=== PATIENT | female | born 1945 | race Caucasian/White ===

== ENCOUNTER 2017-05-07 05:40 | Day surgery (SDC) | payer MEDICARE, OTHER ==
[~2017-05-07] VITALS: Ht 162.6 cm; Wt 109.3 kg
[~2017-05-07 05:40] MED LIST: ASPIRIN325 MG PO; ATENOLOL25 MG PO; DETROL LA4 MG PO; FISH OIL 1,2001 EAC1 PO; GABAPENTIN300 MG PO; MELOXICAM15 MG PO; METFORMIN HCL500 MG PO; OMEPRAZOLE20 MG PO; ONCE DAILY1 EACH PO; PRIMIDONE50 MG PO
--- NOTE | 2017-05-07 08:16 | NUR ---
05/07/17 0816 Lisseth Pandya 0800 RESP EVEN AND UNLABORED. PT REACTIVE AND ASLEEP. REPORT FROM [employer] MACHINE 0806 O2 REMOVED, PT REORIENTED TO PACU. O2 SAT 100%. 0812 OS SAT 89%, NC PLACED ON PT AT 4L.
--- NOTE | 2017-05-07 08:48 | NUR ---
PT ARRIVES TO DS RM 5, DROWSY WITH NC IN PLACE. PT DENIES ANY PAIN ON ARRIVAL. ICED WATER AND WARM BLANKET PROVIDED. CALL LIGHT WITHIN REACH. NO FURTHER COMPLAINTS AT THIS TIME.
[2017-05-07] MEDS ORDERED: BACTRIM DS TAB1 EACH PO (09:02)
--- NOTE | 2017-05-07 09:09 | NUR ---
LE 0850: PUDDING PROVIDED TO PT. PT STATED THEY WERE "STARVING." TOLERATED WELL WITH NO COMPLAINTS OF N/V. GLASSES ON PT PER PT REQUEST. OXYGEN TURNED OFF, PT MAINTAINING SATS OF 97. NC REMOVED. CALL LIGHT WITHIN REACH. PT RESTING QUIETLY.
--- NOTE | 2017-05-07 10:43 | OR ---
[facility] [address] [place], [place] [address] Signed DATE OF OPERATION: 05/07/2017 SURGEON: Kyler Renee MD PREOPERATIVE DIAGNOSIS: Overactive bladder. POSTOPERATIVE DIAGNOSIS: Overactive bladder. NAME OF PROCEDURE: Diagnostic cystoscopy with Botox bladder injection of 100 units. ANESTHESIA: MAC. ESTIMATED BLOOD LOSS: None. COMPLICATIONS: None. SPECIMENS: None. DRAINS: None. INDICATIONS FOR PROCEDURE: Ms. Adams is a very pleasant 72-year-old female with a longstanding history of overactive bladder. She recently presented to my clinic with reports of severe bouts of urinary urgency, frequency, and urge incontinence. She had tried both Ditropan and Detrol in the past without any improvement in her symptoms. On her last office visit, she notified me that after reading the information I had given her on Botox bladder injection, that she wanted to go ahead and give that a try. She has no history of issues with urinary tract infections and continues to wear multiple pads daily. She presents today to undergo diagnostic cystoscopy with injection of 100 units of botulinum toxin into the bladder. OPERATIVE FINDINGS: Electronically Signed By: KYLER RENEE MD 05/07/17 1043 PATIENT NAME: JEANNE ADAMS OPERATIVE REPORT DATE OF : 41 PHYSICIAN: KYLER RENEE MD REPORT #: [id number] REPORT IS CONFIDENTIAL AND NOT TO BE RELEASED WITHOUT AUTHORIZATION [facility] [address] [place], [place] [address] Signed 1. On cystoscopy, there was no evidence of any suspicious masses, lesions, or stones. The bilateral ureteral orifices are in their normal anatomic location. There is a diffuse grade 1 to 2 bladder wall trabeculation noted. 2. A total of 20 injections of botulinum toxin was injected into the bladder wall, avoiding the dome and trigone area. Each injection consisted of 0.5 mL aliquot of botulinum toxin, for a total of 100 units injected. DESCRIPTION OF PROCEDURE: After informed consent was obtained, the patient taken back to the operative room. She was transferred from [facility] to the operating room table, where MAC anesthesia was induced. She was placed in the dorsal lithotomy position and her genitalia were prepped and draped in standard sterile fashion. Using a 30-degree lens on a 21-Faroese introducer, rigid cystoscope was inserted through the urethra into her bladder under direct visualization. Panendoscopic views of the bladder were then obtained. Please see above findings. The Laborie needle was then advanced through the cystoscope and into the patient's bladder. The needle was then advanced by 4 mm. I then proceeded to inject the patient's bladder with 0.5 mL aliquots of the 100 units of botulinum toxin reconstituted with 10 mL of saline. A total of 22 injections were placed, including 2 mL of saline flush at the end of the procedure. The patient tolerated the procedure well without any complication. I avoided both the dome and trigone areas in the bladder during the injection. Once all of the botulinum toxin was injected, the procedure was terminated. The patient tolerated the procedure well without any complication. She will now be transferred to the postanesthesia care unit in stable condition. DISPOSITION: Ms. Adams will be discharged to home today in stable condition. She was given 3 days worth of Bactrim double strength for prophylaxis. She will be scheduled to return to clinic in approximately 5 weeks to undergo her first postoperative evaluation. MD FERNANDO Mock/ILIANA /[id number] Electronically Signed By: KYLER RENEE MD 05/07/17 1043 PATIENT NAME: JEANNE ADAMS OPERATIVE REPORT DATE OF : 41 PHYSICIAN: KYLER RENEE MD REPORT #: [id number] REPORT IS CONFIDENTIAL AND NOT TO BE RELEASED WITHOUT AUTHORIZATION
--- NOTE | 2017-05-07 11:22 | NUR ---
DR. RENEE IN PT ROOM. DISCUSSING HOW PROCEDURE WENT AND WHAT TO EXPECT. LE 1034: PT UP TO BR WITH RN ASSIST. PT AMBULATES WELL AND DENIES ANY DIZZINESS. PT WAS ABLE TO VOID 100 ML OF YELLOW URINE WITH SCANT AMOUNT OF RED BLOOD PRESENT. PT STATES "IT BURNED A LITTLE."
--- NOTE | 2017-05-07 12:05 | NUR ---
LE 1145: DC INSTRUCTIONS GIVEN TO PT, PT VERBALIZES UNDERSTANDING. PT DRESSED AND SITTING ON BEDSIDE. DAUGHTER, ELVIS, CALLED FOR RESOURCE MANAGEMENT SPECIALIST. PT DC'D VIA WHEELCHAIR FROM DS RM 5.
== END 2017-05-07 11:55 | disposition home or self-care (01) ==
LOC: DS 05:40 → OPS 05:40 → DS 08:00 → OPS 08:00
PROVIDERS: Urology
PROC: 3E0K8GC Introduction of Other Therapeutic Substance into Genitourinary Tract, Via Natural or Artificial Opening Endoscopic (ICD-10-PCS; principal; 2017-05-07 06:45)
DX: N32.81 Overactive bladder (principal); E11.9 Type 2 diabetes mellitus without complications; I10 Essential (primary) hypertension; I48.91 Unspecified atrial fibrillation; K21.9 Gastro-esophageal reflux disease without esophagitis; Z95.2 Presence of prosthetic heart valve; Z90.710 Acquired absence of both cervix and uterus; Z98.890 Other specified postprocedural states; Z88.5 Allergy status to narcotic agent; Z79.82 Long term (current) use of aspirin; Z79.899 Other long term (current) drug therapy; Z79.1 Long term (current) use of non-steroidal anti-inflammatories (NSAID); Z79.2 Long term (current) use of antibiotics; Z96.651 Presence of right artificial knee joint
CPT/HCPCS: 00910; J0330; J0696; J2250; J2405; J2704; J2765; J3010; J7120

== ENCOUNTER 2018-07-08 07:00 | Day surgery (SDC) | payer MEDICARE, OTHER ==
[~2018-07-08] VITALS: Ht 162.6 cm; Wt 104.8 kg
[~2018-07-08 07:00] MED LIST changes: +ATORVASTATIN CA40 MG PO; +BACTRIM DS TAB1 EACH PO; +CYMBALTA30 MG PO; +KEFLEX500 MG PO; +LISINOPRIL10 MG PO; +LISINOPRIL2.5 MG PO; +METFORMIN HCL500 M1 PO; -OMEPRAZOLE20 MG PO; +PRILOSEC OTC20 MG PO; +PRIMIDONE250 MG PO; +PYRIDIUM200 MG PO
[2018-07-08] MEDS ORDERED: MACROBID 100 M100 MG PO (08:14)
--- NOTE | 2018-07-08 08:57 | NUR ---
PT ASSISTED UP TO BATHROOM VIA WC AND RN ASSIST. PT TOLERATED WELL. PT ASSISTED BACK TO BED. LIGHTS OUT, PT RESTING.
--- NOTE | 2018-07-08 10:29 | NUR ---
PT RESTING IN BED, IMMEDIATELY BEGAN TO SHARE DISCOURAGEMENT WITH ME REGARDING HER HEALTH. SHE STATED THAT WHY SHE IS HERE TODAY HAS NOTHING TO DO WITH THE PAIN IN MY BODY. SHE THEN POINTED TO HER NECK AND BACK AND SAID SHE IS IN CONSTANT PAIN. GAVE ENCOURAGEMENT, PT REQUESTED PRAYER. WILL FOLLOW NEEDED
--- NOTE | 2018-07-08 10:47 | NUR ---
07/08/18 1047 Jenna Cox 1023 PT ARRIVED IN PACU SLEEPY. BLOOD SUGAR 96 ON ARRIVAL. 1040 PT C/O URGE TO VOID. PLACED ON BEDPAN.
--- NOTE | 2018-07-08 12:21 | NUR ---
IN TO CHECK ON PT, PT RESTING. PT C/O HAVING BLADDER PRESSURE. DISCUSSED THE NEED FOR PT TO BE MORE AWAKE BEFORE ATTEMPTING TO AMBULATE TO THE RESTROOM. PT AGREES. PT NOTED TO BE MOANING, PT PROMPTED TO DISCUSS REASON FOR PAIN. PT C/O "I JUST HURT ALL OVER." DISCUSSED TREATING BLADDER PAIN WHEN PT ABLE TO EAT. PUDDING GIVEN. WILL CHECK ON PT.
--- NOTE | 2018-07-08 13:52 | NUR ---
1300 PT SITTING ON COMOD VOIDED ABOUT 100ML CLEAR URINE
--- NOTE | 2018-07-11 09:54 | OR ---
[facility] [address] [facility] [place], [place] [address] Signed DATE OF OPERATION: 07/08/2018 SURGEON: Kyler Renee MD PREOPERATIVE DIAGNOSES: 1. Overactive bladder. 2. Recurrent urinary tract infection. POSTOPERATIVE DIAGNOSES: 1. Overactive bladder. 2. Recurrent urinary tract infection. NAMES OF PROCEDURES: Diagnostic cystoscopy with Botox bladder injection, 100 units. ANESTHESIA: MAC. ESTIMATED BLOOD LOSS: None. COMPLICATIONS: None. SPECIMENS: None. DRAINS: None. INDICATIONS FOR PROCEDURE: Ms. Watson is a very pleasant 73-year-old female, who is quite well known to me. She has a complex urologic history including a history of recurrent Escherichia coli UTIs. She has been receiving intermittent antibiotics since that time along with occasional antibiotic suppression for management of her UTIs. At the same time, she has also been experiencing severe urinary urgency, frequency, and urge incontinence symptoms and has tried multiple different oral anticholinergic medications in an attempt to manage her symptoms. She has undergone a negative diagnostic cystoscopy in the past. On her last office visit, the patient made the decision to go ahead and attempt a trial of Botox bladder injection of 100 units. She was made well aware of the risk of worsening of her Electronically Signed By: KYLER RENEE MD 07/11/18 0954 PATIENT NAME: JEANNE WATSON OPERATIVE REPORT DATE OF : 41 REPORT #: [id number] PHYSICIAN: KYLER RENEE MD PCP: WILBERTO BUITRAGO MD REPORT IS CONFIDENTIAL AND NOT TO BE RELEASED WITHOUT AUTHORIZATION [facility] [address] [place], [place] [address] Signed recurrent UTIs; however, she is willing to accept this risk in order to have the opportunity to resolve her urgency and frequency symptoms. She presents today to undergo the aforementioned procedure. OPERATIVE FINDINGS: 1. On cystoscopy, there was no evidence of any suspicious masses, lesions or stones. Bilateral ureteral orifices are in their normal anatomic location. There is mild diffuse grade 1 to 2 bladder wall trabeculation noted. 2. A total of 100 units of botulinum toxin was injected into the patient's bladder without difficulty. The 100 units of Botox was reconstituted into 10 mL of sterile saline and was injected at 0 mL aliquots, with an additional 2 mL of saline flush without difficulty. DESCRIPTION OF PROCEDURE: After informed consent was obtained, the patient was taken back to the operating room. She was transferred from the [facility] to the operating room table, where MAC anesthesia was induced. She was placed in the dorsal lithotomy position and the genitalia prepped and draped in standard sterile fashion. Using a 30-degree lens on a 22-Upper Sorbian introducer, rigid cystoscope was inserted through the urethra and into her bladder under direct visualization. Panendoscopic views of the bladder were then obtained including the lateral france, floor, dome, and trigone areas. I advanced the BoxCast injector needle through the scope and into the patient's bladder and the needle was advanced out to 4 mm length. I then began 0.5 mL injections across the posterior bladder wall along with the bilateral france of the bladder. I also injected just superior to the trigone. I avoided the trigone proper along with the bilateral ureteral orifices and dome of the bladder. There was mild oozing at the end of the injection, which was then gently cauterized via Bovie cautery. The patient's bladder was then irrigated multiple times and then completely drained. The patient tolerated the procedure well without any complication. She will now be transferred to the postanesthesia care unit in stable condition. DISPOSITION: I discussed the details of today's surgery with the patient's daughter and answered all of her questions. The patient will be discharged home later today when she awakes from anesthesia. She will be scheduled to return to clinic in 6-8 weeks with a urine check and to assess her response to the injections. Kyler Renee MD Electronically Signed By: KYLER RENEE MD 07/11/18 0954 PATIENT NAME: JEANNE WATSON OPERATIVE REPORT DATE OF : 41 REPORT #: [id number] PHYSICIAN: KYLER RENEE MD PCP: WILBERTO BUITRAGO MD REPORT IS CONFIDENTIAL AND NOT TO BE RELEASED WITHOUT AUTHORIZATION [address] [address] Signed FERNANDO/ILIANA /[id number] Copies: ~ Electronically Signed By: KYLER RENEE MD 07/11/18 0954 PATIENT NAME: JEANNE WATSON OPERATIVE REPORT DATE OF : 41 REPORT #: [id number] PHYSICIAN: KYLER RENEE MD PCP: WILBERTO BUITRAGO MD REPORT IS CONFIDENTIAL AND NOT TO BE RELEASED WITHOUT AUTHORIZATION
== END 2018-07-08 13:30 | disposition home or self-care (01) ==
LOC: OPS 07:00 → DS 07:00 → OPS 13:30
PROVIDERS: Urology
PROC: 3E0K8GC Introduction of Other Therapeutic Substance into Genitourinary Tract, Via Natural or Artificial Opening Endoscopic (ICD-10-PCS; principal; 2018-07-08 08:30)
DX: N32.81 Overactive bladder (principal); N32.89 Other specified disorders of bladder; N39.0 Urinary tract infection, site not specified; I10 Essential (primary) hypertension; E11.9 Type 2 diabetes mellitus without complications; I48.91 Unspecified atrial fibrillation; Z88.8 Allergy status to other drugs, medicaments and biological substances; Z79.899 Other long term (current) drug therapy; Z79.82 Long term (current) use of aspirin
CPT/HCPCS: 00910; J0585; J0696; J2250; J2704; J7120

== ENCOUNTER 2019-03-17 05:55 | Day surgery (SDC) | payer MEDICARE, OTHER ==
--- NOTE | 2019-03-11 23:42 | EKG ---
[facility] [address] [facility] [place], [place] [address] Signed Normal sinus rhythm Rightward axis Cannot rule out Anteroseptal infarct (cited on or before 26-JUN-2018) Abnormal ECG When compared with ECG of 26-JUN-2018 13:22, No significant change was found Confirmed by RENEE BARTLETT MD ([id number]) on 03/11/2019 11:42:12 PM Electronically Signed By: RENEE BARTLETT MD 03/11/19 2342 PATIENT NAME: JEANNE WATSON Electrocardiogram DATE OF : 41 PHYSICIAN: RENEE BARTLETT MD REPORT #: [id number] REPORT IS CONFIDENTIAL AND NOT TO BE RELEASED WITHOUT AUTHORIZATION
[~2019-03-17] VITALS: Ht 162.6 cm; Wt 106.1 kg
--- NOTE | ~2019-03-17 | OR ---
[facility] [address] [place], [place] [address] Draft DATE OF OPERATION: 03/17/2019 SURGEON: Angela Renee MD PREOPERATIVE DIAGNOSIS: Severe overactive bladder. POSTOPERATIVE DIAGNOSIS: Severe overactive bladder. NAMES OF PROCEDURES: Diagnostic cystoscopy with Botox bladder injection of 100 units. ANESTHESIA: MAC. ESTIMATED BLOOD LOSS: Minimal. COMPLICATIONS: None. SPECIMEN: None. DRAINS: None. INDICATIONS FOR PROCEDURE: Ms. Watson is a very pleasant 73-year-old female with a history of lumbar spine pathology with associated severe overactive bladder symptoms. She is well known to me and has undergone multiple Botox bladder injections in the past. On her most recent office visit, she reported that her most recent Botox bladder injection affect has worn off almost completely, and she was requesting a repeat injection. She presents today to undergo another Botox bladder injection of 100 units. OPERATIVE FINDINGS: 1. On cystoscopy, there was no evidence of any suspicious masses, lesions, or stones. Bilateral ureteral orifices are in their normal anatomic location effluxing clear urine. There is diffuse grade 2 to 3 bladder wall trabeculation noted. PATIENT NAME: JEANNE WATSON OPERATIVE REPORT DATE OF : 41 REPORT #: [id number] PHYSICIAN: ANGELA RENEE MD PCP: WILBERTO BUITRAGO MD REPORT IS CONFIDENTIAL AND NOT TO BE RELEASED WITHOUT AUTHORIZATION [facility] [address] [facility] [place], [place] [address] Draft 2. A total of 100 units of botulinum toxin was injected into the bladder via 1 mL aliquots of reconstituted Botox solution. The majority of the injections were placed in the posterior and lateral france of the bladder, avoiding the dome and trigone areas. The injections were performed without difficulty. DESCRIPTION OF PROCEDURE: After informed consent was obtained, the patient was taken back to the operating room. [facility] to the operating room table, where MAC anesthesia was induced. She was placed in the dorsal lithotomy position and her genitalia prepped and draped in standard sterile fashion. Using a 30-degree lens on a 22.5-Lao introducer, rigid cystoscope was inserted through the urethra into her bladder under direct visualization. Valenzuela-endoscopic views of the bladder were then obtained. Please see above findings. The [employer] needle was then advanced through the scope and into the patient's bladder. The needle was protracted to a depth of 3 mm. Injections were then performed and 1 mL aliquots, primarily in the posterior and lateral france of the bladder, avoiding the dome and trigone areas. The injections were placed without difficulty. 2 mL of saline was then used to flush the remaining Botox out of the injector. The procedure was performed without difficulty and she tolerated the procedure well. Once the procedure was completed, the patient's bladder was emptied completely. She will now be transferred to the postanesthesia care unit in stable condition. DISPOSITION: The patient will be discharged to home later today after awaking from anesthesia. She will be sent home with cephalexin 500 mg p.o. b.i.d. for a total of 5 days. She will be scheduled return to clinic in 2 months for her first postoperative evaluation. Angela Renee MD AR/MODL /[id number] Copies: PATIENT NAME: JEANNE WATSON OPERATIVE REPORT DATE OF : 41 REPORT #: [id number] PHYSICIAN: ANGELA RENEE MD PCP: WILBERTO BUITRAGO MD REPORT IS CONFIDENTIAL AND NOT TO BE RELEASED WITHOUT AUTHORIZATION [address] [address] Draft ~ PATIENT NAME: JEANNE WATSON OPERATIVE REPORT DATE OF : 41 REPORT #: [id number] PHYSICIAN: ANGELA RENEE MD PCP: WILBERTO BUITRAGO MD REPORT IS CONFIDENTIAL AND NOT TO BE RELEASED WITHOUT AUTHORIZATION
[~2019-03-17 05:55] MED LIST changes: +AMITRIPTYLINE H25 MG PO; +KETOROLAC TROMET5 ML OPTH; +MACROBID 100 M100 MG PO; +MELATONIN1 MG PO; +MILLIPRED5 MG PO; +OFLOXACIN5 ML OTIC; +OMEPRAZOLE20 MG PO; +TYLENOL EXTRA500 MG PO
--- NOTE | 2019-03-17 08:37 | NUR ---
03/17/19 0837 Efra Sagastume NOTED. PT DENIES PAIN BY SHAKING HEAD "NO" WHEN ASKED IF SHE IS HURTING. REORIENTED PT TO TIME AND SITUATION.
--- NOTE | 2019-03-17 08:59 | NUR ---
PT IS BACK TO DS FROM PACU. SHE IS NOT C/O SURGICAL SITE PAIN, ONLY LOWER BACK PAIN. SHE WAS COLD IN PACU, SHE CAME OVER WITH EXTRA BLANKETS. WATER ON BEDSIDE TABLE. CALL LIGHT WITHIN REACH. NO ADDITIONAL NEEDS.
--- NOTE | 2019-03-17 09:48 | NUR ---
PATIENT RESTING, EYES CLOSED. WILL ANSWER QUESTIONS WHEN ASKED. TAKING SIPS OF WATER. BREATHING REGULAR. CALL LIGHT WITHIN REACH. NO OTHER NEEDS AT THIS TIME.
--- NOTE | 2019-03-17 11:20 | NUR ---
PATIENT UP TO BATHROOM WITH WHEELCHAIR. PATIENT REPORTS BACK HURTING FROM CHRONIC PAIN. PATIENT ABLE TO TRANSFER SELF TO TOILET AND NEEDED ASSISTANCE BACK TO BED WITH LIFTING LEGS. NO N/V, PATIENT AAOX3. PROVIDED WARM BLANKET, CALL LIGHT WITHIN REACH. SIDE RAILS UP. PROVIDED VANILLA PUDDING AND ICEWATER.
--- NOTE | 2019-03-17 11:59 | NUR ---
PATIENT RIDE TO FRONT IN , NEIGHBOR PICKED PATIENT UP. MEETS CRITIERIA TO BE DISCHARGED. ANSWERED ALL QUESTIONS AND CONCERNS WITH DISCHARGE INSTRUCTION.
--- NOTE | 2019-03-17 12:48 | NUR ---
PT RESTING, MASOUD JOHNSON. PT MENTIONED THAT SHE DID NOT WAKE TO HER ALARM AND HER G.SON WAS WAITING TO TAKE HER. PT DOESN'T DO WELL HAVING TO NICHOLSON. I WAS ABLE TO GET PT TO FOCUS ON OTHER THINGS, AND PT ADMITTED SHE IS SELLING HER HOME. THIS IS A BIG STEP FOR HER, BUT SAID SHE IS GOING TO KEEP DRIVING LONG SHE CAN. HAD PRAYER WITH PT, WILL FOLLOW NEEDED
== END 2019-03-17 11:50 | disposition home or self-care (01) ==
LOC: DS 05:55 → OPS 05:55 → DS 06:45 → OPS 06:45
PROVIDERS: Urology
PROC: 3E0K8GC Introduction of Other Therapeutic Substance into Genitourinary Tract, Via Natural or Artificial Opening Endoscopic (ICD-10-PCS; principal; 2019-03-17 06:45)
DX: N32.81 Overactive bladder (principal); N32.89 Other specified disorders of bladder; E11.9 Type 2 diabetes mellitus without complications; I48.91 Unspecified atrial fibrillation; Z79.899 Other long term (current) drug therapy; Z79.82 Long term (current) use of aspirin; Z88.8 Allergy status to other drugs, medicaments and biological substances
CPT/HCPCS: 00910; 36415; 71045; 80048; 81001; 85025; 93005; 93010; J0585; J0696; J1100; J2405; J2704; J3010; J7121

== ENCOUNTER 2021-08-06 16:46 | Inpatient (IN) | payer MEDICARE, OTHER ==
[~2021-08-06] VITALS: Ht 162.6 cm; Wt 111.9 kg
[~2021-08-06 16:46] MED LIST changes: +ALLERGY RELIEF180 MG PO; +AMIODARONE HCL200 MG PO; +AMITRIPTYLINE H10 MG PO; +DILTIAZEM ER180 M2 PO; +ELIQUIS5 MG PO; +HYDROCODON-ACE1 EA10 PO; +PROPRANOLOL HCL10 MG PO; +TOPROL XL100 MG PO
--- OUTSIDE RECORDS SUMMARY | 2021-08-06 16:50 | XMS ---
PreManage Notification: JEANNE WATSON Security [employer] Events No recent Security Events currently on file [facility] IFTIKHAR DELEON Internal Medicine: Pulmonary Disease 02/25/2018-Current PHONE: Unknown Beverly has no Care Guidelines for this patient. Care History Medical/Surgical 02/25/2018 [facility] - PATIENT HAS A FOLLOW UP PCP APT WITH DR BUITRAGO ON 03/06/18 @ 2:00PM. - Patient is currently established with [facility]. If patient is seen in the ED during business hours. Please contact CHWs at [facility]. Care Recommendation: This patient has had 5 or more Emergency Department visits in the last 12 months.\T\nbsp; Patient requires education on the scope and purpose of the ED as an acute care provider not a Primary Care Provider and should not be utilized for chronic conditions.\T\nbsp; These are guidelines and the provider should exercise clinical judgment when providing care. [facility].D. V[facility]IT COUNT (12 MO.) [facility] TOTAL 2 NOTE: Visits indicate total known visits. ED/UCC VISIT TRACKING (12 MO.) 08/06/2021 16:47 [facility] [place] TYPE: Emergency COMPLAINT: - WEAKNESS,COUGH [facility]: Emergency DIAGNOSES: - Tachycardia, unspecified - Acute pulmonary edema - Acute respiratory distress - Respiratory Distress INPATIENT VISIT TRACKING (12 MO.) 09/20/2020 04:31 [facility] TYPE: Internal Medicine DIAGNOSES: - Essential (primary) hypertension - Pneumonia, unspecified organism - Tachycardia, unspecified - Acute respiratory distress - Gastro-esophageal reflux disease without esophagitis - Paroxysmal atrial fibrillation - Morbid (severe) obesity due to excess calories - Acute pulmonary edema - Ventricular tachycardia [email or web address]
[2021-08-06] MEDS ORDERED: GABAPENTIN100 MG PO (17:14)
--- NOTE | 2021-08-06 21:42 | NUR ---
New admit to medical floor. Patient arrived to unit alert and oriented x4. Patient is on 2L oxygen per nc, respirations 24bpm, persistent harsh cough noted. Patient reports a headasche, tylenol 500mg po admin as well as robitussin AC for cough. Patient's brief changed at she was incontinent of urine. Oriented pt to room and call light. No further needs at this time.
--- NOTE | 2021-08-07 01:36 | NUR ---
Patient up coughing, she reports her cough is keeping her up. Admin Tesallon perles 200mg po for cough. No further needs.
--- NOTE | 2021-08-07 03:10 | NUR ---
Patient sleeping, eyes closed, respirations non labored. Patient remains on 2L oxygen per nc. No distress.
--- NOTE | 2021-08-07 04:35 | NUR ---
Patient wheezy, reporting shortness of breath. Admin duoneb at this time as well as jonn ELIZABETH cough. SP02 93% on 2L.
--- NOTE | 2021-08-07 04:41 | NUR ---
Patient wheezy, she reports shortness of breath to this RN. Admin Duoneb and Robitussin AC for cough. Respirations 24bpm, sp02 93% on 2L oxygen per nc. Patient provided with fresh water. No further needs at this time.
--- NOTE | 2021-08-07 05:45 | NUR ---
Patient assisted to void in bedpan, two person assist. Zainab area cleaned, new brief place.
--- NOTE | 2021-08-07 06:10 | NUR ---
Patient called this RN to room stating she cannot breath. Patient's RR in the 40's, labored. SP02 checked; 70% on 2L per nc, patient pale and diaphoretic. Oxygen immediately increased to 15L at this time, SP02 increased to 73% sustained, non rebreather placed, oxygen continued in low 70's. RT to bedside at this time. Blood sugar spot check 180 at this time. cue worker remained with patient while I called provider. Dr. Radford notified regarding change in patient status. New order obtained to place patient on BIPAP and transfer to ICU. RT, cue worker, soaping department supervisor and this RN all in room assisting with transfer to ICU dept. Report provided to JYOTI Wilson at bedside in ICU dept. Patient on BIPAP and Dr. Radford remained at bedside. Patient's daughter Jesse notified regarding patient's transfer to CCU and current status.
--- NOTE | 2021-08-07 06:18 | NUR ---
message via phone left with gracie Schwarz at [phone] r/t mother being transferred to ICU and to please call this unit for updates
--- NOTE | 2021-08-07 06:25 | NUR ---
talked to daughter Jesse and informed of azar being transferred to ICU and change in health condition. "I have a softball tournament today my brother and my niece whould be her contacts". "I will be coming in"
--- NOTE | 2021-08-07 08:00 | NUR ---
Report received from caustic cresylate shift superintendent RN. Pt is currently on bipap and tolerating. Alert and oriented x3. EKG completed- results given to provider. Iv patent. Gonzalez in place and draining clear urine. Assessment completed. Holding PO medications at this time. Map <60, provider notified. Edema to BLE noted; dp and pt pulses palpable. Pt denies pain/discomfort. Pt's family is at bedside. Call light within reach. Will cont to monitor.
[2021-08-07] MEDS ORDERED: VALSARTAN80 MG PO (08:20)
[2021-08-07] MEDS ORDERED: LISINOPRIL10 MG PO (08:21)
--- NOTE | 2021-08-07 08:55 | NUR ---
family requests that primary contact for today be her son, Oli Adams @ [phone].
--- NOTE | 2021-08-07 08:59 | EKG ---
[facility] [address] [facility] [place] [address] Signed Normal sinus rhythm Right axis deviation Abnormal ECG When compared with ECG of 11-MAR-2019 13:34, Minimal criteria for Anteroseptal infarct are no longer present Confirmed by MARKO BRUNSON MD ([id number]) on 08/07/2021 8:59:02 AM Electronically Signed By: MARKO BRUNSON MD 08/07/21 0859 PATIENT NAME: JEANNE WATSON Electrocardiogram DATE OF : 41 PHYSICIAN: MARKO BRUNSON MD REPORT #: [id number] REPORT IS CONFIDENTIAL AND NOT TO BE RELEASED WITHOUT AUTHORIZATION
--- NOTE | 2021-08-07 13:39 | NUR ---
REPORT GIVEN TO JYOTI TARANGO AT [facility] ICU. AWAITING ARRIVAL OF [facility] TO TRANSPORT PT TO [place] AT THIS TIME.
--- NOTE | 2021-08-07 14:35 | NUR ---
PT TRANSPORTED ON STRETCHER VIA [facility] TO [facility] [place].
--- NOTE | 2021-08-09 13:38 | EKG ---
[facility] [address] [facility] [place], [place] [address] Signed Normal sinus rhythm Right axis deviation Possible Right ventricular hypertrophy Abnormal ECG No previous ECGs available Confirmed by MARKO BRUNSON MD ([id number]) on 08/09/2021 1:38:35 PM Electronically Signed By: MARKO BRUNSON MD 08/09/21 1338 PATIENT NAME: JEANNE WATSON Electrocardiogram DATE OF : 41 PHYSICIAN: MARKO BRUNSON MD REPORT #: [id number] REPORT IS CONFIDENTIAL AND NOT TO BE RELEASED WITHOUT AUTHORIZATION
--- NOTE | 2021-08-09 13:38 | EKG ---
[facility] [address] [facility] [place] [address] Signed Sinus rhythm with marked sinus arrhythmia with 1st degree AV block Nonspecific intraventricular block Lateral infarct , age undetermined Abnormal ECG When compared with ECG of 06-AUG-2021 17:54, (Unconfirmed) Questionable change in QRS duration Lateral infarct is now present Confirmed by MARKO BRUNSON MD ([id number]) on 08/09/2021 1:38:29 PM Electronically Signed By: MARKO BRUNSON MD 08/09/21 1338 PATIENT NAME: JEANNE WATSON Electrocardiogram DATE OF : 41 PHYSICIAN: MARKO BRUNSON MD REPORT #: [id number] REPORT IS CONFIDENTIAL AND NOT TO BE RELEASED WITHOUT AUTHORIZATION
== END 2021-08-07 14:35 | disposition short-term general hospital (02) | DRG 196 ==
LOC: ED 16:46 → MS 19:34 → CCU 08-07 06:20
PROVIDERS: ADMIT Internal Medicine; ATTEND Internal Medicine
DX: J84.9 Interstitial pulmonary disease, unspecified (principal); J96.01 Acute respiratory failure with hypoxia; I21.A1 Myocardial infarction type 2; J96.02 Acute respiratory failure with hypercapnia; I16.1 Hypertensive emergency; M19.90 Unspecified osteoarthritis, unspecified site; E78.5 Hyperlipidemia, unspecified; Z96.651 Presence of right artificial knee joint; I48.0 Paroxysmal atrial fibrillation; Z95.2 Presence of prosthetic heart valve; K21.9 Gastro-esophageal reflux disease without esophagitis; R25.1 Tremor, unspecified; Z79.899 Other long term (current) drug therapy; Z88.5 Allergy status to narcotic agent; Z20.822 Contact with and (suspected) exposure to COVID-19; Z98.890 Other specified postprocedural states
CPT/HCPCS: 36415; 71045; 80048; 80053; 82803; 83880; 84484; 85025; 85730; 87070; 87205; 87502; 93005; 93010; 94640; 94660; 96365; 96375; 99285-25; A9270; C9803; J0456; J0692; J0696; J1644; J1940; J1956; J7060; U0003

== ENCOUNTER 2022-05-02 14:35 | Emergency (ER) | payer MEDICARE, OTHER ==
[~2022-05-02] VITALS: Ht 162.6 cm; Wt 113.4 kg
[~2022-05-02 14:35] MED LIST changes: +CEPHALEXIN500 MG PO; +GABAPENTIN100 MG PO; +OMEPRAZOLE10 MG PO; -OMEPRAZOLE20 MG PO; +PROPRANOLOL HCL40 MG PO; +VALSARTAN40 MG PO; +VALSARTAN80 MG PO; +WARFARIN SODIU2.5 MG PO; +WARFARIN SODIUM5 MG PO
--- OUTSIDE RECORDS SUMMARY | 2022-05-02 14:40 | XMS ---
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: Unknown HORTENSIA BLACKMON A Physician Starch Mangle Tender Current RAZA Cortes PHONE: [phone] Flip [place] Internal Medicine Current PHONE: [phone] IFTIKHAR DELEON Internal Medicine: Pulmonary Disease 02/25/2018-Current PHONE: Unknown Beverly has no Care Guidelines for this patient. Care History Medical/Surgical 02/25/2018 [facility] - PATIENT HAS A FOLLOW UP PCP APT WITH DR BUITRAGO ON 03/06/18 @ 2:00PM. - Patient is currently established with [facility]. If patient is seen in the ED during business hours. Please contact CHWs at [facility]. Care Recommendation: This patient has had 5 [...] providing care. E.D. VISIT COUNT (12 MO.) 2 [facility]. TOTAL 2 NOTE: Visits indicate total known visits. ED/UCC VISIT TRACKING (12 MO.) 05/02/2022 14:37 [facility] [place] TYPE: Emergency COMPLAINT: - ABD CRAMPS/PAIN, VOMITING, POSS UTI 08/06/2021 16:47 [facility] [place] TYPE: Emergency COMPLAINT: - WEAKNESS,COUGH INPATIENT VISIT TRACKING (12 MO.) 08/07/2021 17:33 [facility] [place] [facility] TYPE: General Medicine DIAGNOSES: - Chronic pulmonary edema - Pneumonia, unspecified organism - NSTEMI 08/06/2021 19:34 [facility] [place] TYPE: Critical Care COMPLAINT: - PNEUMONIA DIAGNOSES: - Unspecified osteoarthritis, unspecified site - Myocardial infarction type 2 - Hyperlipidemia, unspecified - Paroxysmal atrial fibrillation - Presence of prosthetic heart valve - Contact with and (suspected) exposure to COVID-19 - Acute respiratory failure with hypercapnia - Presence of right artificial knee joint - Hypertensive emergency - Allergy status to narcotic agent - Other specified postprocedural states - Interstitial pulmonary disease, unspecified - Tremor, unspecified - Other [place] [facility] facility (current) drug therapy - Gastro-esophageal reflux disease without esophagitis - Acute respiratory failure with hypoxia [email or web address]
[2022-05-02] MEDS ORDERED: SYMBICORT 80-10.2 GM INH (15:19)
[2022-05-02] MEDS ORDERED: AMOXICILLIN500 MG PO (15:19)
[2022-05-02] MEDS ORDERED: VENTOLIN HFA18 GM INH (15:19)
[2022-05-02] MEDS ORDERED: PROPRANOLOL HCL60 M1 PO (17:20)
[2022-05-02] MEDS ORDERED: CEPHALEXIN500 MG PO (17:25)
[2022-05-02] MEDS ORDERED: LEVOFLOXACIN250 MG PO (18:34)
[2022-05-02] MEDS ORDERED: ONDANSETRON ODT8 MG PO (18:37)
== END 2022-05-02 19:42 | disposition home or self-care (01) ==
LOC: ED 14:35
DX: N12 Tubulo-interstitial nephritis, not specified as acute or chronic (principal); R31.9 Hematuria, unspecified; Z79.01 Long term (current) use of anticoagulants; I10 Essential (primary) hypertension; M19.90 Unspecified osteoarthritis, unspecified site; Z79.899 Other long term (current) drug therapy
CPT/HCPCS: 36415; 74177; 80053; 81001; 85025; 85610; 86850; 86900; 86901; 99284-25; J0696; J2405; J7030

== ENCOUNTER 2022-05-09 12:57 | Inpatient (IN) | payer MEDICARE, OTHER ==
[~2022-05-09] VITALS: Ht 162.6 cm; Wt 121.0 kg
[~2022-05-09 12:57] MED LIST changes: +AMOXICILLIN500 MG PO; +LEVOFLOXACIN250 MG PO; -OMEPRAZOLE10 MG PO; +OMEPRAZOLE20 MG PO; +ONDANSETRON ODT8 MG PO; +PROPRANOLOL HCL60 M1 PO; +SYMBICORT 80-10.2 GM INH; +VENTOLIN HFA18 GM INH
--- OUTSIDE RECORDS SUMMARY | 2022-05-09 13:00 | XMS ---
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 Current PHONE: Unknown HORTENSIA BLACKMON A Physician Armature Winder Constance Cortes PHONE: [phone] Flip [facility] Current PHONE: [phone] IFTIKHAR DELEON Internal Medicine: Pulmonary Disease 02/25/2018-Current PHONE: Unknown Beverly has no Care Guidelines for this patient. Care History Medical/Surgical 02/25/2018 [facility] - PATIENT HAS A FOLLOW UP PCP APT WITH DR BUITRAGO ON 03/06/18 @ 2:00PM. - Patient is currently established with [facility]. If patient is seen in the ED during business hours. Please contact CHWs at [facility]. Care Recommendation: This patient has [...] providing care. E.D. VISIT COUNT (12 MO.) 3 [facility] TOTAL 3 NOTE: Visits indicate total known visits. ED/UCC VISIT TRACKING (12 MO.) 05/09/2022 12:58 [facility] [place] TYPE: Emergency COMPLAINT: - VOMITING 05/02/2022 14:37 [facility] [place] TYPE: Emergency COMPLAINT: - ABD CRAMPS/PAIN, VOMITING, POSS UTI DIAGNOSES: - Other care home (current) drug therapy - shelter (current) use of anticoagulants - Unspecified osteoarthritis, unspecified site - Essential (primary) hypertension - Tubulo-interstitial nephritis, not specified as acute or chronic - Hematuria, unspecified 08/06/2021 16:47 [facility] [place] TYPE: Emergency COMPLAINT: - WEAKNESS,COUGH INPATIENT VISIT TRACKING (12 MO.) 08/07/2021 17:33 [facility] [place] TYPE: General Medicine DIAGNOSES: - Pneumonia, unspecified organism - NSTEMI - Chronic pulmonary edema 08/06/2021 19:34 [facility] TYPE: Critical Care COMPLAINT: - PNEUMONIA DIAGNOSES: - Contact with and (suspected) exposure to COVID-19 - Acute respiratory failure with hypercapnia - Presence of right artificial knee joint - Hypertensive emergency - Allergy status to narcotic agent - Other specified postprocedural states - Interstitial pulmonary disease, unspecified - Tremor, unspecified - Other care home (current) drug therapy - Gastro-esophageal reflux disease without esophagitis - Acute respiratory failure with hypoxia - Unspecified osteoarthritis, unspecified site - Myocardial infarction type 2 - Hyperlipidemia, unspecified - Paroxysmal atrial fibrillation - Presence of prosthetic heart valve [email or web address]
--- NOTE | 2022-05-09 18:51 | NUR ---
PATIENT ADMITTED TO MED SURG. NS INFUSING AT 200ML/HOUR TO RIGHT ARM. PATIENT ARRIVED VIA GURNEY AND SELF TRANSFERRED TO BED WITH 1PA. 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 PLAN TO PROVIDE WALKER FOR USE HERE. PATIENT HAD ONE SIP OF WATER AND BECAME NAUSEATED, SHE DOES BETTER WITH ICE CHIPS OR POPCICLES, PER PATIENT. PATIENT REPORTS 7/10 LOW BACK PAIN AND RITE SIDE PAIN.
--- NOTE | 2022-05-09 19:19 | NUR ---
skin evaluation with rakesh wade. no breakdown noted to mendy area, botton, under breasts, or pannus.
--- NOTE | 2022-05-09 19:33 | NUR ---
REPORT RECEIVED FROM DAY SHIFT RN. PT LYING IN BED ALERT AND ORIENTED. WARM BLANKETS PROVIDED. WHITE BOARD UPDATED. CALL LIGHT IN REACH.
--- NOTE | 2022-05-09 20:26 | NUR ---
ADMISSION ASSESSMENT COMPLETE. IVF INFUSING PER ORDER. PT REPORTS BACK PAIN 07/26. PRN FOR PAIN ADMIN PER EMAR. PT DENIES NAUSEA AT THIS TIME. SUGAR FREE SODA PROVIDED PER REQUEST. TELE #9 PLACED. AFIB. HR LOW 100'S. PT DENIES CHEST PAIN OR SOB. ASSISTED TO REPOSTION IN BED. PT DENIES QUESTIONS OR CONCERNS. CALL LIGHT IN REACH.
--- NOTE | 2022-05-09 22:31 | NUR ---
PT RESTING IN BED WITH EYES CLOSED. RESPIRATIONS EVEN. SPOT CHECK SpO2 90-94% ON RA. CALL LIGHT IN REACH. BED ALARM FOR SAFETY.
--- NOTE | 2022-05-09 23:01 | NUR ---
CALL LIGHT ANSWERED. PT UP TO BR WITH FWW AND ENGINEERING LABORATORY TECHNICIAN ASSIST TO VOID. BACK TO BED. HR UP TO 160'S WITH ACTIVITY. PT DENIES CHEST PAIN. REPORTS SLIGHT SOB THAT IS "NORMAL" SpO2 MID 90'S ON RA. HR IRREGULAR. BACK DOWN TO LOW 100'S AT REST.
--- NOTE | 2022-05-10 00:48 | NUR ---
HR NOTED TO BE ELEVATED 130'S-140'S. PT RESTING WITH EYES CLOSED. SPOT CHECK SpO2 61% ON RA. PT AWAKENED TO TAKE DEEP BREATHS. OXYGEN UP TO MID 80'S. 2L/NC PLACED. BP WNL. OXYGEN UP TO 100%. PT DENIES CHEST PAIN. FEELS SLIGHT SOB WHICH SHE REPORTS IS NORMAL. NOTIFIED. NEW TELEPHONE ORDERS RECEIVED VERIFIED WITH READBACK METHOD. HR NOW LOW 100'S. SpO2 100% ON 2L/NC. FRESH DRINKS AND ICE CHIPS PROVIDED. NO FURTHER NEEDS.
--- NOTE | 2022-05-10 02:17 | NUR ---
PT RESTING WITH EYES CLOSED. AWAKENS EASILY. VS AND I&O COMPLETE. HR IRREGULAR LOW 100'S. SpO2 99% ON 2L/NC. PT DENIES PAIN OR NAUSEA AT THIS TIME. NO NEEDS. CALL LIGHT IN REACH.
--- NOTE | 2022-05-10 04:04 | NUR ---
PT RESTING IN BED WITH EYES CLOSED. RESPIRATIONS EVEN. CALL LIGHT IN REACH.
--- NOTE | 2022-05-10 06:16 | NUR ---
IN TO DO VITALS AND I&O'S. PATIENT UP TO BSC AND THEN TO CHAIR, 1PA FWW. PATIENT TOLERATED TRANSFER WELL. VITALS AND I&O'S CHARTED. WARM BLANKET GIVEN, CALL LIGHT IN REACH. NO FURTHER NEEDS AT THIS TIME.
--- NOTE | 2022-05-10 06:20 | NUR ---
PT UP TO RECLINER. DENIES NAUSEA. REPORTS PAIN IS TOLERABLE AT THIS TIME. TELE #[address] HR 90-100'S. HR IRREGULAR. O2 2L/NC IN PLACE. DENIES NEEDS. CALL LIGHT IN REACH.
--- NOTE | 2022-05-10 07:36 | NUR ---
REPORT RECEIVED FROM NIGHT RN - PT RESTING IN CHAIR, 2L [address], RR EVEN AND UNLABORED. HR 89 ON TELE.
--- NOTE | 2022-05-10 08:41 | NUR ---
RN IN ROOM TO ADMINISTER AM MEDICATIONS. PT EASILY AWAKES, EXCITED TO EAT BREAKFAST. RATES PAIN 5/10 IN LOWER BACK, PRN TYLENOL AND HEAT PACK PROVIDED. PT DENIES FURTHER NEEDS. HR NOTED TO BE 110'S WHILE EATING WITH SOB - 2L O2 REMAINS IN PLACE.
--- NOTE | 2022-05-10 11:00 | NUR ---
RN IN ROOM TO ASSESS PT - MD IN ROOM ROUNDING. PT RESTING IN BED, REPOSISTIONED IN BED AND PRN MORPHINE ADMINISTERED FOR WORSENING BACK PAIN THAT WAS NOT RESPONSIVE TO TYLENOL. PT REQUESTS TIME TO SLEEP, "NAP TIME" SIGN PLACED ON DOOR. PT REMIANS ON 2L 02 TO MAINTAIN SPO2. LUNG SOUNDS DIM AND WHEEZE AT BASES.
--- NOTE | 2022-05-10 12:07 | NUR ---
medications reconciled using pharmacy records and patient interview. Patient is anticoagulated with warfarin as the DOACs do not have an indication for valvular A-Fib
--- NOTE | 2022-05-10 12:32 | NUR ---
RN IN ROOM TO ROUND - PT SITTING IN BED WITH LAB AT BEDSIDE TO DRAW. FOOD WARMED AND DRINK REFRESHED. DENIES FURTHER NEEDS AT THIS TIME.
--- NOTE | 2022-05-10 13:23 | NUR ---
PT UP TO BATHROOM WITH INDUSTRIAL ROOFER HELPER - HR UP TO 155 IN AFLUTTER. 5MG IV LOPRESSOR PUSHED. PT BACK TO BED , HR RESTING IN 90'S AFIB. PT AND INDUSTRIAL ROOFER HELPER ADVISED TO USE COMMODE UNTIL HOME MEDICATIONS ORDERED AND STARTED.
--- NOTE | 2022-05-10 13:33 | NUR ---
PT CALLED FOR ASSISTANCE TO RESTROOM. PT WAS ABLE TO AMBULATE TO TOILET STBY/FWW. PT WAS STEADY ON FEET TO THE RESTROOM BUT HEARTRATE ECCELERATED WHEN FINISHED. SHE WAS SHAKY SO I HELPED HER W/ELANA-CARE. RN CAME IN TO ROOM AND GAVE MEDS. PT IN BED HEARTRATE IN LOW 90'S. SHE IS NOT COMPLAINING OF ANY PAIN OR DISCOMFORT AT THIS TIME. NO MORE SHAKING. VITALS/I&O'S TAKEN & DOCUMENTED. CALL LIGHT IN REACH.
--- NOTE | 2022-05-10 16:50 | NUR ---
Spoke with pt and she states she lives in a [place] alone. 2 steps in and has rails, no issues getting in or out of the home. Pt drives, shops, cooks for self. She has a walker and cane. Does not use. States last admission to [facility] they sent her home with 02, she did not use. States she will not use, or the would have to talk her into using 02. Discussed this is her choice, but there are consequences for not using 02. We discussed 02 qualifiers and she states she has an oximeter and she is always above 90 at home. She denies any financial issues. Would like to have INR machine and not have lab draw. Rn in room and discussed they do draws here. She plans on dc to home when cleared medically. Her 2 children live here and assist her as needed. She denies any needs from CM.
--- NOTE | 2022-05-10 16:57 | NUR ---
RN IN ROOM TO ROUND ON PT - RATES PAIN "HIGH" AND NEEDS PRN PAIN MEDICATION, ADMINISTERED. PT ALSO PROVIDED WARM BLANKETS. CASE MANAGEMENT IN ROOM DISCUSSING NEEDS WITH PT. CALL LIGHT IN REACH. CBG WITHIN RANGE AND DOES NOT NEED MEAL COVERAGE.
--- NOTE | 2022-05-10 17:54 | NUR ---
PATIENT IS UP IN CHAIR. PATIENT RATES LOW BACK/RIGHT LOW BACK PAIN IS 3-4/10 AND IS GREATLY IMPROVED AFTER HAVING PAIN MEDICATION. PATIENT GIVEN A CUP OF ICE CHIPS, DENIES OTHER NEEDS.
--- NOTE | 2022-05-10 19:21 | NUR ---
RECEIVED BEDSIDE REPORT FROM OFFGOING SHIFT, HOURLY ROUNDING INITIATED.
--- NOTE | 2022-05-10 20:09 | NUR ---
IN PT ROOM FOR ASSESSMENT, ASSISTANCE TO TOILET. PT ALSO TAKEN FROM CHAIR TO BED WITHOUT INCIDENT. PT RESTING IN BED WITH NO COMPLAINT OF PAIN AT THIS TIME, CALL LIGHT IN REACH.
--- NOTE | 2022-05-10 22:00 | NUR ---
IN PT ROOM FOR ROUNDING. PT RESTING ON BACK, WATCHING TELEVISION. PT HAS NO COMPLAINT OF PAIN WHEN ASKED. PT CALL LIGHT IN REACH
--- NOTE | 2022-05-10 23:00 | NUR ---
in pt room to assist with toileting. pt resting in bed, able to appropriately transfer to commode. pt has no complaint of pain, repositioned, call light in reach
--- NOTE | 2022-05-11 00:22 | NUR ---
IN PT ROOM FOR ROUNDING. PT RESTING ON BACK, WATCHING TELEVISION. PT HAS NO COMPLAINT OF PAIN OR DISCOMFORT, REQUESTED NEW COLD WATER, CALL LIGHT IN REACH.
--- NOTE | 2022-05-11 00:58 | NUR ---
IN PT ROOM FOR ROUNDING . PT RESTING ON BACK, TV OFF, EYES CLOSED, BREATHING EVEN AND UNLABORED. PT HAS NO INDICAITNO OF PAIN OR DISCOMFORT. CALL LIGHT IN REACH.
--- NOTE | 2022-05-11 02:11 | NUR ---
IN PT ROOM FOR ASSESSMENT. PT UP AND WATCHING TV, REQUESTED A SNACK, RAFA JUNE PROVIDED. PT HAS NO COMPLAINT OF PAIN OR DISCOMFORT, CALL LIGHT IN REACH
--- NOTE | 2022-05-11 03:27 | NUR ---
IN PT ROOM FOR ROUNDING. PT RESTING ON BACK, EYES CLOSED, BREATHING EVEN AND UNLABORED. PT ROUSED SLIGHTLY, ASKED IF PT HAD ANY DISCOMFORT AND PT STATED NO. PT CALL LIGHT IN REACH.
--- NOTE | 2022-05-11 04:10 | NUR ---
ASSISTED PT OUT OF BED INTO RECLINER PT STATED BACK WAS HURTING AND GIVEN PRN MORPINE IV. PT ALSO ASSISTED TO BSC. PT SITTING IN CHAIR CALL LIGHT WITHIN REACH. NO OTHER COMPLAINTS NOTED AT THIS TIME.
--- NOTE | 2022-05-11 05:43 | NUR ---
pt resting in chair. vitals and is and os complete. pt declined restroom needs. pt has no needs at this time. call light within reach
--- NOTE | 2022-05-11 07:44 | NUR ---
PT IN CHAIR RESTING. BS TAKEN BY STUDENT RN. NO NEEDS AT THIS TIME. CALL LIGHT WITHIN REACH
--- NOTE | 2022-05-11 07:57 | NUR ---
INTORODUCED SELF STUDETN NURSE TO PATIENT. CONDUCTED BG TEST. PATINET RESTING IN CHAIR COMFTORABLY WITH CALL LIGHT IN REACH. NO COMPLAINTS OR QUESTIONS AT THIS TIME.
--- NOTE | 2022-05-11 09:00 | NUR ---
Brief conversation with pt. States she is "ok". Denies needs. No change in plan for CM at this time.
--- NOTE | 2022-05-11 09:15 | NUR ---
REPORT RECEIVED FROM NIGHT RN AND PT CARE RESUMED. PT. IS ALERT AND ORIENTED TO ALL BUT YEAR. SHE DENIES PAIN. CRACKLES AUSCULTATED IN BASES OF LUNGS AND EDEMA NOTED IN ALL EXTREMITITES. WILL UPDATE MD. PT. LEFT RESTING WITH CALL IGHT IN REACH
--- NOTE | 2022-05-11 10:00 | NUR ---
CRACKLES IN BASES OF LUNGS NOTED WELL EDEMA TO ALL EXTREMITIES. MD UPDATED AND IVF RATE REDUCED. WILL CONTINUE TO MONITOR.
--- NOTE | 2022-05-11 10:16 | NUR ---
2 IV STARTS ATTEMPTED BY THIS NURSE AND UNSUCCESSFUL. CHARGE IN THE ROOM TO ATTEMPT.
--- NOTE | 2022-05-11 14:02 | NUR ---
PATIENT ASSITED FROM RESTROOM TO BED. PERSONAL HYGINE CONDUCTED WITH PATIENT GRATIFLENIN. PATIENT REPORTED NO PAIN. NO FURTHER QUESTIONS AT THIS TIME. PATIENT IN SEMI FOWLERS POSITION WATCHING TV WITH CALL LIGHT IN REACH.
--- NOTE | 2022-05-11 15:22 | NUR ---
pt resp rate even, iv pump alarming - notified sn - pump reset for a few min and looks wnl at iv site.
--- NOTE | 2022-05-11 16:22 | NUR ---
STUDENT RN REPORTS PT. IV LEAKING AND WAS PULLED. NURSES SUPERINTENDENT CONTACTED FOR ULTRASOUND GUIDED IV START, PT. IS DIFFICULT IV START.
--- NOTE | 2022-05-11 17:36 | NUR ---
ULTRASOUND STARTED IV IN RIGHT UPPER ARM. JOHN SITTING IN CHAIR EATING MEAL WITH CALL LIGHT IN REACH.
--- NOTE | 2022-05-11 17:37 | NUR ---
ATTEMPTED TO PLACE AN ULTRASOUND IV IN THE LEFT FOREARM. ACCIDENTAL ARTERIAL ACCESS. IV CATHETER REMOVED. MANUAL PRESSURE APPLIED FOR 10 MINUTES. PRESSURE DRESSING APPLIED. PT'S PRIMARY NURSE NOTIFIED.
--- NOTE | 2022-05-11 18:00 | NUR ---
ROUNDING ON PT. SHE IS EATING DINNER IN CHAIR. ASSISTED WITH ADJUSTING LIGHTS. DENIES FURTHER NEEDS. CALL LIGHT IN REACH.
--- NOTE | 2022-05-11 19:28 | NUR ---
RECEIVED BEDSIDE REPORT FROM OFFGOING SHIFT, HOURLY ROUNDING INITIATED.
--- NOTE | 2022-05-11 20:56 | NUR ---
IN PT ROOM FOR ASSISTANCE TO CHAIR. PT UP TO CHAIR WITHOUT INCIDENT, STILL COMPLAINING OF PAIN IN BACK AND SIDE, WAITING FOR PAIN MEDICATION THAT WAS GIVEN TO BECOME EFFECTIVE. PT HAS NU FURTHER CONCERN AT THIS TIME, CALL LIGHT IN REACH.
--- NOTE | 2022-05-11 22:06 | NUR ---
IN PT ROOM FOR ROUNDING. PT RESTING IN CHAIR, WATCHING TELEVISION. PT HAS NO COMPLAINT OF PAIN OR DISCOMFORT, ASKED FOR SOME WATER, CALL LIGHT IN REACH
--- NOTE | 2022-05-11 23:25 | NUR ---
IN PT ROOM FOR ROUNDING. PT RESTING IN CHAIR, EYES CLOSED, BREATHING EVEN AND UNLABORED WITH NO INDICATION OF PAIN OR DISCOMFORT AT THIS TIME. PT CALL LIGHT IN REACH.
--- NOTE | 2022-05-12 00:50 | NUR ---
IN PT ROOM FOR ROUNDING. PT RESTING ON BACK IN CHAIR, NO COMPLAINT OF PAIN AT THIS TIME, BREATHING IS EVEN AND UNLABORED, CALL LIGHT IN REACH
--- NOTE | 2022-05-12 01:15 | NUR ---
ROUNDED ON pt, pt RESTING QUIETLY IN BED WITH EYES CLOSED. NC IN PLACE, NO DISTRESS NOTED. RR EVEN AND UNLABORED. IV FLUIDS INFUSING WNL, IV SITE WNL. CALL LIGHT IN REACH.
--- NOTE | 2022-05-12 03:01 | NUR ---
IN PT ROOM FOR ROUNDING. PT RESTING ON BACK IN CHAIR, EYES CLSOED, BREATHING EVEN AND UNLABORED, NO INDICATION OF PAIN OR DISCOMFORT, CALL LIGHT IN REACH.
--- NOTE | 2022-05-12 07:39 | NUR ---
REPORT RECEIVED FROM JYOTI BLANTON. PATIENT LAYING IN BED RESTING. BG OBTAINED. PT REPORTS THAT THEY ARE TIERD AND WOULD LIKE TO SLEEP LONGER.
--- NOTE | 2022-05-12 08:09 | NUR ---
report received. pt in bed. reports being tired this morning and not wanting to get up yet. [facility]
--- NOTE | 2022-05-12 09:09 | NUR ---
PATIENT ON 2L NC WITH OXYGEN SATURAION AT 100%. TITRATED PATIENT TO RA. SATURATIONS REMAINED 99-100%.
--- NOTE | 2022-05-12 09:30 | NUR ---
REPORT RECEIVED FROM NIGHT RN AND PT CARE RESUMED. PT. IS ALERT AND ORIENTED TO ALL. SHE REPORTS PAIN IN R FLANK THAT STARTED LAST NIGHT AND IS SHARP AND NOT RELIEVED BY HEAT OR PAIN MED. ON ROOM AIR AND O2 SATIS 99%. ASSESSMENT COMPLETED. PT. BROUGHT DRINK AND DENIES FURTHER NEEDS. LEFT RESTING WITH CALL LIGHT IN REACH.
--- NOTE | 2022-05-12 11:00 | NUR ---
SHEELA S.Naveen AND TECH HERE TO TRANSPORT PT. FOR XRAY.
--- NOTE | 2022-05-12 12:10 | NUR ---
ILANA AND IN CARING FOR PT. PT IS PLEASANT, BUT COULD TELL TODAY SHE WAS NOT FEELING THE BEST. LEFT A G.POST, BLESSING AND GAVE ENCOURAGEMENT STAFF CONTINUED TO CARE FOR PT.
--- NOTE | 2022-05-12 13:57 | NUR ---
PT. AMBULATED WITH FWW AND SBA DOWN THE HALLWAY AND BACK TO HER ROOM AND TOLERATED WELL. DENIES DIZZINESS OR SOB. SHE THEN AMBULATED TO THE BATHROOM AND BACK TO BED. SHE REPORTS FLANK PAIN IS MUCH IMPROVED AFTER NAP. LEFT RESTING AND EATING LUNCH. CALL LIGHT IN REACH.
--- NOTE | 2022-05-12 14:13 | NUR ---
PATIENT IN CHAIR AFTER MEAL. VITALS AND I/O'S COMPLETED. CALL LIGHT WITHIN REACH.
--- NOTE | 2022-05-12 15:59 | NUR ---
PT. RESTING WITH EYES CLOSED IN BED. RESPIRATIONS ARE EVEN AND UNLABORED. IVF INFUSING.
--- NOTE | 2022-05-12 16:50 | NUR ---
PT. ADMINISTERED SCHEDULED MED. PT STATES "NO WONDER NO ONE GETS BETTER IN THE HOSPITAL. EVERY TIME YOU FALL A SLEEP SOMEONE WAKES YOU TO TAKE A DAMN PILL!" THIS NURSE DISCUSSED CLUSTERING CARE AND PRODUCT TEST ENGINEER. LEFT RESTING WITH CALL LIGHT IN REACH.
--- NOTE | 2022-05-12 18:52 | NUR ---
PT. BROUGHT FRESH WATER AND SODA. DENIES FURTHER NEEDS.
--- NOTE | 2022-05-12 19:00 | NUR ---
REPORT RECEIVED FROM JYOTI HERRERA. PT LAYING IN BED WITH EYES CLOSED. RR EVEN AND UNLABORED. PT AWAKENS AND RESPONDS WHEN ADDRESSED. PT REPORTS NO NEEDS AT THIS TIME. CALL LIGHT IN REACH.
--- NOTE | 2022-05-12 19:39 | NUR ---
THIS RN TALKED WITH DR. BARTLETT TO CONFIRM DC OF BG CHECKS WITH MEALS AND AT NIGHT. VERBAL ORDER TO DC BG CHECKS. VERIFIED WITH READBACK.
--- NOTE | 2022-05-12 20:40 | NUR ---
IN TO ADMINISTER MEDICATIONS, SEE MAR. PT LAYING IN BED AND RESPONDS WHEN ADDRESSED. PT TAKES PO MEDICATIONS WITH NO ISSUES. VITALS AND I&Os COMPLETE. ASSESSMENT COMPLETE. LUNG SOUNDS CLEAR IN RUL, RONNIE, AND LLL. DIMINISHED IN RLL. BOWEL TONES ACTIVE. PT DENIES ANY PAIN AT THIS TIME. PT DENIES TOILETING NEEDS AT THIS TIME. PT REQUESTING SOCKS REMOVED. REMOVED SOCKS. ICE WATER PROVIDED. IV INFUSING WNL. PT DENIES ANY OTHER NEEDS AT THIS TIME. CALL LIGHT IN REACH.
--- NOTE | 2022-05-12 21:50 | NUR ---
PT UTILIZES CALL LIGHT, REQUESTS TO USE THE BATHROOM. PT UP TO BATHROOM AND BACK TO BED WITH 1 PA AND FWW. PT TOLERATED WELL. ONCE BACK TO BED PT SITS AND TAKES A FEW SIPS OF WATER. PT STATES THAT SHE FEELS LIKE SHE COULD "SPIT UP". PT HAD VERY SMALL AMOUNT OF WHITE FOAMY EMESIS, WELL A COUPLE OF SNEEZES. PT WITH SMALL AMOUNT OF BLOOD ON TISSUE AFTER BLOWING HER NOSE. PT DENIES THE NEED FOR ANTIEMETIC, STATES THAT NAUSEA HAS PASSED. PRIMARY RN AT BEDSIDE HONEY LIQUEFIER EXITS. CALL LIGHT IN REACH. BED ALARM ACTIVE.
--- NOTE | 2022-05-12 21:53 | NUR ---
IN TO ROUND ON PT. JYOTI SOOD IN ROOM ASSISTING PT WITH TOILETING NEEDS. UPDATED BY JYOTI SOOD THAT PT HAD SOME EMESIS AND A LITTLE BLOOD WHEN SNEEZING. PT DENIES PRN ZOFRAN WHEN OFFERED AND STATES HER NAUSEA HAS "PASSED." PT REPORTS NO OTHER NEEDS AT THIS TIME. CALL LIGHT IN REACH. BED ALARM ON. PT LAYING IN BED SEMI-FOWLERS. RR EVEN AND UNLABORED.
--- NOTE | 2022-05-12 22:42 | NUR ---
IN TO ROUND ON PT. IV PUMP ALARMING, RESOLVED. IV INFUSING WNL. PT LAYING SEMI-FOWLERS IN BED WITH EYES CLOSED. RR EVEN AND UNLABORED. NO OTHER NEEDS IDENTIFIED AT THIS TIME. CALL LIGHT IN REACH. BED ALARM ON.
--- NOTE | 2022-05-12 23:39 | NUR ---
IN TO ROUND ON PT. PT RESTING IN BED WITH EYES CLOSED. RR EVEN AND UNLABORED. IV INFUSING WNL. NO NEEDS IDENTIFIED AT THIS TIME. CALL LIGHT IN REACH. BED ALARM ON.
--- NOTE | 2022-05-13 00:21 | NUR ---
IN TO ROUND ON PT. PT LAYIN IN BED SEMI-FOWLERS WITH EYES CLOSED. RR EVEN AND UNLABORED. IV INFUSING WNL. NO NEEDS IDENTIFIED AT THIS TIME. CALL LIGHT IN REACH.
--- NOTE | 2022-05-13 01:55 | NUR ---
IN TO ROUND ON PT. PT LAYING IN BED SEMI-FOWLERS WITH EYES CLOSED. RR EVEN AND UNLABORED. I&Os COMPLETE. NO NEEDS IDENTIFIED AT THIS TIME. CALL LIGHT IN REACH. BED ALARM ON.
--- NOTE | 2022-05-13 02:52 | NUR ---
IN TO ROUND ON PT. PT LAYING IN BED AND AWAKENS WHEN THIS RN ENTERS ROOM. ASKED PT IF SHE NEEDS ANYTHING. PT STATES "COTTON MOUTH" "CAN I GET ICE CHIPS." ICE CHIPS PROVIDED. PT DENIES ANY OTHER NEEDS AT THIS TIME. CALL LIGHT IN REACH. BED ALARM ON. IV INFUSING WNL.
--- NOTE | 2022-05-13 03:09 | NUR ---
IN IV PUMP ALARMING, RESOLVED. PT REPORTING BACK PAIN AND STATES "I NEED TO MOVE MY BODY OVER." OFFERED TO MOVE PILLOW FROM RIGHT SIDE TO LEFT SIDE. PT ACCEPTS AND PILLOW PLACED UNDER LEFT SIDE. PT STATES "THAT IS BETTER." PT REPORTS NO OTHER NEEDS AT THIS TIME. CALL LIGHT IN REACH. BED ALARM ON. IV INFUSING WNL.
--- NOTE | 2022-05-13 05:46 | NUR ---
IN TO ROUND ON PT AND OBTAIN VITALS. PT REQUESTING TO USE RESTROOM. PAUSED FLUIDS SO PT CAN AMBULATE TO RESTROOM. UPON UNHOOKING PT FROM IV. PTs RIGHT ARM APPEARS TO HAVE EDEMA COMPARED TO PTs LEFT ARM. PT DENIES PAIN IN RIGHT ARM. NO REDNESS NOTED. FIRMNESS NOTED TO SITE. SBA WITH FWW FROM BED TO RESTROOM AND BACK TO BED. PT HAS STEADY GAIT. THIS RN ASKED JYOTI SOOD TO LOOK AT IV SITE. SITE APPEARS TO BE INFILTRATED. FLUIDS HELD AT THIS TIME. WILL NOTIFY . VITALS AND I&Os COMPLETE. PT DENIES PAIN AT THIS TIME. PT DENIES ANY OTHER NEEDS AT THIS TIME. CALL LIGHT IN REACH.
--- NOTE | 2022-05-13 06:29 | NUR ---
IN PT BED ALARM IS GOING OFF. PT STATES "I WAS JUST MOVING TO GET COMFORTABLE." PT REPORTS LOW RIGHT SIDED BACK PAIN AND REQUESTING PRN PAIN MEDICATION, PRN PAIN MEDICATION ADMINISTERED, SEE MAR. INDIGO RN IN ROOM TO ASSIST WITH BOOSTING PT IN BED. ICE WATER PROVIDED FOR PT. PT DENIES ANY OTHER NEEDS AT THIS TIME. CALL LIGHT IN REACH.
--- NOTE | 2022-05-13 06:36 | NUR ---
THIS RN CALLED DR. BARTLETT TO INFORM HER OF PTs IV INFILTRATION. INFORMED DR. BARTLETT THERE IS SOMEONE ON DAYSHIFT THAT CAN DO ULTRASOUND IV THIS PREVIOUS IV WAS ULTRASOUND. AWARE AND STATES "TO PASS ALONG TO DAYSHIFT." NO NEW ORDERS AT THIS TIME.
--- NOTE | 2022-05-13 06:45 | NUR ---
IV DC'd DUE TO INFILTRATION. IV DC'd WNL. RIGHT ARM ELEVATED ON PILLOW. PT REPORTS NO OTHER NEEDS AT THIS TIME. CALL LIGHT IN REACH.
--- NOTE | 2022-05-13 07:04 | NUR ---
REPORT RECEIVED FROM CHRISTOPHER MONTES, ALL QUESTIONS ANSWERED. PT RESTING QUIETLY IN BED, RESPIRATIONS EVEN AND UNLABORED. CALL LIGHT IN REACH.
--- NOTE | 2022-05-13 10:21 | NUR ---
MORNING ASSESSMENT COMPLETE. PT SITTING UP IN RECLINER. DENIES PAIN AT THIS TIME. STATES WHEN SHE DOES HAVE PAIN IT IS LOCATED AT HER BACK THAT RADIATES UP HER SIDES. DENIES NEEDS AT THIS TIME. CALL LIGHT IN REACH.
== END 2022-05-13 14:55 | disposition home or self-care (01) | DRG 683 ==
LOC: ED 12:57 → MS 17:51
PROVIDERS: ADMIT Family Medicine; ATTEND Internal Medicine
DX: N17.9 Acute kidney failure, unspecified (principal); Z68.41 Body mass index [BMI] 40.0-44.9, adult; Z20.822 Contact with and (suspected) exposure to COVID-19; Z66 Do not resuscitate; N13.6 Pyonephrosis; R31.9 Hematuria, unspecified; R11.2 Nausea with vomiting, unspecified; I48.91 Unspecified atrial fibrillation; E11.9 Type 2 diabetes mellitus without complications; I10 Essential (primary) hypertension; K21.9 Gastro-esophageal reflux disease without esophagitis; M54.50 Low back pain, unspecified; G89.29 Other chronic pain; I35.8 Other nonrheumatic aortic valve disorders; E78.5 Hyperlipidemia, unspecified; E66.01 Morbid (severe) obesity due to excess calories; E83.42 Hypomagnesemia; K80.20 Calculus of gallbladder without cholecystitis without obstruction; Z95.4 Presence of other heart-valve replacement; Z90.710 Acquired absence of both cervix and uterus; Z79.2 Long term (current) use of antibiotics; Z79.01 Long term (current) use of anticoagulants; Z79.899 Other long term (current) drug therapy
CPT/HCPCS: 36415; 74018; 74176; 80048; 80053; 81001; 81003; 83735; 84100; 85025; 85610; 96361; 96365; 96375; 99285-25; A9270; C9803; J0692; J0696; J1170; J2270; J2405; J3475; J7030; J7040; U0003

== ENCOUNTER 2022-07-22 19:15 | Observation (INO) | payer MEDICARE, OTHER ==
[~2022-07-22] VITALS: Ht 162.6 cm; Wt 104.7 kg
[~2022-07-22 19:15] MED LIST changes: +TORSEMIDE10 MG PO
--- OUTSIDE RECORDS SUMMARY | 2022-07-22 19:16 | XMS ---
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 Care History Medical/Surgical 02/25/2018 [facility] - PATIENT HAS A FOLLOW UP PCP APT WITH DR BUITRAGO ON 03/06/18 @ 2:00PM. - Patient is currently established with [facility]. If patient is seen in the ED during business hours. Please contact CHWs at [facility]. Care Recommendation: This patient has had 5 [...] providing care. E.D. VISIT COUNT (12 MO.) 4 [facility]. TOTAL 4 NOTE: Visits indicate total known visits. 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 - Tubulo-interstitial nephritis, not specified as acute or chronic - Unspecified osteoarthritis, unspecified site 08/06/2021 16:47 [facility] [place] TYPE: Emergency COMPLAINT: - WEAKNESS,COUGH INPATIENT VISIT TRACKING (12 MO.) 05/09/2022 17:51 [facility] TYPE: Medical Surgical COMPLAINT: - ACUTE KIDNEY INJURY DIAGNOSES: - Acquired absence of both cervix and uterus - Acquired absence of both cervix and uterus - Acute kidney failure, unspecified - Body mass index [BMI] 40.0-44.9, adult - Body mass index [BMI] 40.0-44.9, adult - Calculus of gallbladder without cholecystitis without obstruction - Calculus of gallbladder without cholecystitis without obstruction - Contact with and (suspected) exposure to COVID-19 - Contact with and (suspected) exposure to COVID-19 - Do not resuscitate - Do not resuscitate - Essential (primary) hypertension - Essential (primary) hypertension - Gastro-esophageal reflux disease without esophagitis - Gastro-esophageal reflux disease without esophagitis - Hematuria, unspecified - Hematuria, unspecified - Hyperlipidemia, unspecified - Hyperlipidemia, unspecified - Hypomagnesemia - Hypomagnesemia - intermediate manager (current) use of antibiotics - skilled nursing (current) use of antibiotics - intermediate manager (current) use of anticoagulants - skilled nursing (current) use of anticoagulants - Low back pain, unspecified - Low back pain, unspecified - Morbid (severe) obesity due to excess calories - Morbid (severe) obesity due to excess calories - Nausea with vomiting, unspecified - Nausea with vomiting, unspecified - Other chronic pain - Other chronic pain - 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 - Other retirement (current) drug therapy - Other nonrheumatic aortic valve disorders - Other nonrheumatic aortic valve disorders - Presence of other heart-valve replacement - Presence of other heart-valve replacement - Pyonephrosis - Pyonephrosis - Type 2 diabetes mellitus without complications - Type 2 diabetes mellitus without complications - Unspecified atrial fibrillation - Unspecified atrial fibrillation 08/07/2021 17:33 [facility] ID TYPE: General Medicine DIAGNOSES: - Chronic pulmonary edema - Pneumonia, unspecified organism - NSTEMI 08/06/2021 19:34 [facility] [place] TYPE: Critical Care COMPLAINT: - PNEUMONIA DIAGNOSES: - Acute respiratory failure with hypercapnia - Acute respiratory failure with hypoxia - Allergy status to narcotic agent - Contact with and (suspected) exposure to COVID-19 - Gastro-esophageal reflux disease without esophagitis - Hyperlipidemia, unspecified - Hypertensive emergency - Interstitial pulmonary disease, unspecified - Myocardial infarction type 2 - 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
[2022-07-22 22:36] VITALS: BP 111/62
[2022-07-23 02:05] VITALS: BP 118/65
--- NOTE | 2022-07-23 03:29 | NUR ---
PT APPEARS TO BE ASLEEP, EYES CLOSED , RELAXED . SATS ARE 93 - 94 % ON 2L PER NC. PT AWAKENED, HELPED HER ADJUST POSITION, APPLY CHAPSTICK TO HER DRY LIPS. PT TURNED ON HER TV. NO OTHER NEEDS.
--- NOTE | 2022-07-23 04:39 | NUR ---
PT CALLED BEAUSE SHE WAS TOO HOT ANHD SWEATY. TURNED HEAT DOWN TO 70 IN HER ROOM. REMOVED 2 BATH BLANKETS. WASHED PT'S FRONT AND BACK WITH WARMED BATH WIPES AND CHANGED HER GOWN. DRAW SHEET AND CHUX WERE CHANGED. PT WAS ASSISTED TO TURN ON HER RIGHT SIDE WITH PILLOW SUPPORT. PT HAS HER CALL LIGHT IN REACH. SAYS SHE FEELS MUCH BETTER NOW.
[2022-07-23 06:39] VITALS: BP 114/63
--- NOTE | 2022-07-23 06:52 | NUR ---
TURNED PT TO HER BACK FOR COMFORT. SHE FEELS WARM. ORAL TEMP IS 99.0. REMOVED A BLANKET. FEELS BETTER.
--- NOTE | 2022-07-23 07:09 | NUR ---
REPORT RECEIVED FROM NIGHT RN, ALL QUESTIONS ANSWERED. PT RESTING IN BED WITH EYES CLOSED, RESPIRATIONS EVEN AND UNLABORED. 2L NC, CPOX 93%. CALL LIGHT IN REACH.
--- NOTE | 2022-07-23 07:51 | NUR ---
patient up to chair for breakfast. did well with sba/fww. pt on 2 lnc, garcia intact. wwarm blankets given. call light within reach.
[2022-07-23] MEDS ORDERED: CEPHALEXIN500 MG PO (07:57)
--- NOTE | 2022-07-23 09:11 | NUR ---
MORNING ASSESSMENT COMPLETE. PT SITTING UP IN RECLINER, FINISHED BREAKFAST. PT REMAINS ON 2L NC, 93% ON CPOX. 2+ EDEMA TO BLE. CRACKLES HEARD AT BILAT BASES. PT DENIES FURTHER NEEDS AT THIS TIME. CALL LIGHT IN REACH.
--- NOTE | 2022-07-23 09:29 | NUR ---
SPOKE WITH DR MONTENEGRO REGARDING SCHEDULED IV LASIX, PO PROPRANOLOL AND AMIODARONE WITH BP OF 106/55 MAP 61. VERBAL ORDER TO GIVE LASIX AND HOLD OTHER MEDICATIONS AT THIS TIME AND HE WILL SEE PATIENT SOON.
[2022-07-23 09:46] VITALS: BP 106/55
--- NOTE | 2022-07-23 09:48 | NUR ---
PATIENT UP IN CHAIR AFTER MEAL. VITALS AND I/O'S COMPLETED, KLEIN DRAINED AND DOCUMENTED. CALL LIGHT WITHIN REACH.
--- NOTE | 2022-07-23 10:43 | NUR ---
MED REC COMPLETE
--- NOTE | 2022-07-23 10:49 | EKG ---
[facility] [address] [facility] [place] [address] Signed Atrial fibrillation with premature ventricular complexes Right axis deviation Low voltage QRS Abnormal ECG When compared with ECG of 07-AUG-2021 10:14, Nonspecific T wave abnormality now evident in Inferior leads Confirmed by Lakisha Montenegro MD () on 07/23/2022 10:49:27 AM Electronically Signed By: LAKISHA MONTENEGRO MD 07/23/22 1049 PATIENT NAME: JEANNE WATSON Electrocardiogram DATE OF : 41 PHYSICIAN: LAKISHA MONTENEGRO MD REPORT #: [id number] REPORT IS CONFIDENTIAL AND NOT TO BE RELEASED WITHOUT AUTHORIZATION
[2022-07-23 13:21] VITALS: BP 125/62
== END 2022-07-23 13:50 | disposition home or self-care (01) ==
LOC: ED 19:15 → MS 19:16
PROVIDERS: ADMIT Family Medicine; ATTEND Family Medicine
DX: I11.0 Hypertensive heart disease with heart failure (principal); I50.33 Acute on chronic diastolic (congestive) heart failure; I48.91 Unspecified atrial fibrillation; K21.9 Gastro-esophageal reflux disease without esophagitis; E78.5 Hyperlipidemia, unspecified; Z20.822 Contact with and (suspected) exposure to COVID-19; J96.01 Acute respiratory failure with hypoxia
CPT/HCPCS: 36415; 51702; 71045; 80053; 82803; 83735; 83880; 84484; 85025; 85610; 87502; 93005; 93010; 94640; 94660; 94762; 96376; 99285-25; C9803; G0378; J1940; J2270; J2405; U0003

== ENCOUNTER 2024-05-27 01:27 | Emergency (ER) | payer MEDICARE, OTHER ==
[~2024-05-27] VITALS: Ht 162.6 cm; Wt 107.0 kg
[~2024-05-27 01:27] MED LIST changes: +JARDIANCE10 MG PO; -OMEPRAZOLE20 MG PO
[2024-05-27 01:42] LABS: PH, VENOUS 7.249 (7.31-7.41)
[2024-05-27 01:44] LABS: BASOPHILS 0.4 % (0-2); EOSINOPHILS 4.1 % (0-6); HEMATOCRIT 38.2 % (35.0-50.0); HEMOGLOBIN 12.8 g/dL (12.0-18.0); LYMPHOCYTES 10.3 % (24-44); MCH 33.5 (27-36); MCHC 33.5 g/dl (30-36); MCV 99.9 fl (81-99); MONOCYTES 9.7 % (0-12); NEUTROPHILS 75.5 % (39-80); PLATELET COUNT 258 K/uL (140-440); RBC 3.82 M/ul (4.3-5.7); RDW 14.3 (10.5-15.0)
[2024-05-27] MEDS ORDERED: ALBUTEROL/IPRATROPIUM 3 ML NEB INH ONE (01:45)
[2024-05-27 02:09] LABS: ALBUMIN 3.8 g/dL (3.4-5.0); ALBUMIN/GLOBULIN RATIO 0.81 (1.1-2.4); ANION GAP 10.8 (7-21); BUN/CREATININE RATIO 11.25 (6.0-28.6); CALCIUM 9.1 mg/dL (8.5-10.1); CREATININE, SERUM 1.51 mg/dL (0.55-1.02); POTASSIUM 4.8 mmol/L (3.5-5.1); PROTEIN, TOTAL 8.5 g/dL (6.4-8.2)
[2024-05-27 02:30] LABS: INFLUENZA B NAA NEGATIVE (NEGATIVE); RESPIRATORY SYNCYTIAL VIR NAA NEGATIVE (NEGATIVE)
[2024-05-27] MEDS ORDERED: FUROSEMIDE 20 MG/2 ML VIAL IV ONE (02:30)
[2024-05-27 03:55] LABS: PH, VENOUS 7.272 (7.31-7.41)
[2024-05-27] MEDS ORDERED: TORSEMIDE10 MG PO (04:35)
[2024-05-27 05:35] VITALS: BP 128/94
--- NOTE | 2024-05-27 22:02 | EKG ---
[facility] [address] [facility] [place] [address] Signed Atrial fibrillation Nonspecific intraventricular block Possible Lateral infarct (cited on or before 22-MAR-2023) Abnormal ECG When compared with ECG of 22-MAR-2023 01:59, Questionable change in QRS duration Questionable change in initial forces of Lateral leads Confirmed by Lakisha Montenegro MD () on 05/27/2024 10:02:01 PM Electronically Signed By: LAKISHA MONTENEGRO MD [id number] PATIENT NAME: JEANNE WATSON Electrocardiogram DATE OF : 41 PHYSICIAN: LAKISHA MONTENEGRO MD REPORT #: [id number] REPORT IS CONFIDENTIAL AND NOT TO BE RELEASED WITHOUT AUTHORIZATION
== END 2024-05-27 05:35 | disposition home or self-care (01) ==
LOC: ED 01:27
PROVIDERS: Family Medicine
DX: I11.0 Hypertensive heart disease with heart failure (principal); I50.9 Heart failure, unspecified; K21.9 Gastro-esophageal reflux disease without esophagitis; E78.5 Hyperlipidemia, unspecified; I48.91 Unspecified atrial fibrillation; Z79.899 Other long term (current) drug therapy
CPT/HCPCS: 36415; 51702; 51798; 71045; 80053; 82803; 83880; 84484; 85025; 87502; 93005; 93010; 94640; 99285-25; J1940; U0002

== ENCOUNTER 2024-09-21 17:22 | Inpatient (IN) | payer MEDICARE, OTHER ==
[~2024-09-21] VITALS: Ht 162.6 cm; Wt 101.0 kg
[2024-09-21] MEDS ORDERED: ALBUTEROL/IPRATROPIUM 3 ML NEB INH PRN (17:30)
[2024-09-21 17:39] LABS: BASOPHILS 0.4 % (0.1-1.2); EOSINOPHILS 4.6 % (0.7-5.8); LYMPHOCYTES 7.6 % (19.3-51.7); MCH 29.6 PG (25.6-32.2); MCHC 29.6 g/dL (32.2-35.5); MCV 100.0 fL (79.4-94.8); MONOCYTES 11.7 % (4.7-12.5); NEUTROPHILS 75.3 % (34.0-71.1); RBC 3.62 M/uL (3.93-5.22)
[2024-09-21] MEDS ORDERED: PRIMIDONE50 MG PO (17:42)
[2024-09-21] MEDS ORDERED: PROPRANOLOL HCL60 M1 PO (17:42)
[2024-09-21] MEDS ORDERED: ELIQUIS5 MG PO (17:43)
[2024-09-21] MEDS ORDERED: FUROSEMIDE 100 MG/10 ML VIAL IV ONE (18:00)
[2024-09-21 18:06] LABS: ALT (SGPT) 11.0 U/L (14-59); AST (SGOT) 25.0 U/L (15-37); GLOMERULAR FILTRATION RATE,EST 41.0 mL/min (>60); PROTEIN, TOTAL 8.5 g/dL (6.4-8.2); UREA NITROGEN 15.0 mg/dL (7-18)
[2024-09-21] MEDS ORDERED: NITROGLYCERIN PACKET TOP ONE (19:15)
[2024-09-21] MEDS ORDERED: ACETAMINOPHEN 325 MG TAB PO PRN (20:45)
[2024-09-21 20:46] LABS: INR 1.28 (0.80-1.30); PROTIME 15.5 Sec (11.2-14.2)
[2024-09-21 21:17] VITALS: BP 131/72
--- NOTE | 2024-09-21 21:33 | NUR ---
PATIENT ARRIVED TO THE FLOOR VIA STRETCHER. PATIENT MOVED FROM STRETCHER TO BED BY STAFF. PATIENT HAS PUREWICK IN PLACE. PATIENTS ADMISSION COMPLETED. PATIENTS IV FLUSHED AND SL PER ORDER. PATIENTS VITALS TAKEN AND RECORDED. PAIENT PROVIDED SANDWICH BOX AND FRESH ICE WATER. PATIENT PROVIDED WARM BLANKET. PATIENT DENIES ANY OTHER NEEDS. TELE #3 PLACED ON PATIENT. CPOX PLACED ON PATIENT. NO FURTHER NEEDS NOTED. CALL LIGHT IN REACH.
--- NOTE | 2024-09-21 21:56 | NUR ---
GOT REPORT FROM FLOAT NURSE.
--- NOTE | 2024-09-21 22:05 | NUR ---
pt OFF FLOOR WITH JYOTI GOODMAN FOR CT.
--- NOTE | 2024-09-21 22:29 | NUR ---
ASSESSMENT DONE. PATIENT WANTS TO GO TO BED. BED LAID BACK PER PATIENT REQUEST. CPOX ON. PATIENT ON HER CHRONIC 2L OF OXYGEN. PATIENT GIVEN WARM BLANKET. PUREWICK IN PLACE FOR PATIENT. PATIENT GIVEN TYLENOL FOR HEADACHE. PATIENT NEEDS HELP WITH MEDICATION FROM HER TREMOR. IV IS SL. BED IN LOW POSITION. CALL LIGHT WITHIN REACH. PATIENT DENIES ANY OTHER CARES AT THIS TIME.
[2024-09-22] VITALS (11 sets, daily range): BP systolic 101–140; BP diastolic 54–75
--- NOTE | 2024-09-22 00:35 | NUR ---
THIS RN RECEIVED REPORT FROM TREVIN, ASSUMING CARE OF PATIENT AT THIS TIME. PT RESTING IN BED, REQUESTED REPOSITIONED. ALSO STATES SHE FEELS LIKE SHE NEEDS A BREATHING TREATMENT. LS CLEAR AT THIS TIME UPON ASSESSMENT. RESPIRATORY THERAPY CALLED FOR BREATHING TREATMENT. BED ALARM IN PLACE, CALL LIGHT WITHIN REACH.
--- NOTE | 2024-09-22 03:20 | NUR ---
PT CALLING AT THIS TIME, REQUESTING TYLENOL. INFORMED PT THAT TOO EARLY FOR TYLENOL. SHE IS REQUESTING IT BE GIVEN WHEN IT IS AVAILABLE AGAIN. INFORMED PT IT WOULD BE ABOUT 0430. PT STATES AGREES WITH PLAN. CALL LIGHT WITHIN REACH, DENIES ANY OTHER NEEDS AT THIS TIME.
--- NOTE | 2024-09-22 03:58 | NUR ---
PT IS SLEEPING AT THIS TIME, DID NOT WAKE UP AND ALLOWED TO REST. CPOX IN PLACE. CALL LIGHT WITHIN REACH. WILL PROVIDE TYLENOL WHEN WAKENS.
--- NOTE | 2024-09-22 05:01 | NUR ---
PT REQUESTING TYLENOL NOW, C/O 09/25 HEADACHE. SHE REQUESTED I ORDER HER A SPECIFIC BREAKFAST, MENU PROVIDED TO PT AND THIS RN CALLED IN A BREAKFAST ORDER AND LEFT MESSAGE WITH DIETARY FOR AM. PRN TYLENOL GIVEN - SEE MAR. ALL PT CARE NEEDS MET, CALL LIGHT WITHIN REACH. PT REQUESTED BLINDS DRAWN SO SHE COLD POTENTIALLY GET MORE SLEEP THIS AM. WILL ALLOW PT TO REST.
[2024-09-22 05:29] LABS: BASOPHILS 0.7 % (0.1-1.2); EOSINOPHILS 3.3 % (0.7-5.8); LYMPHOCYTES 9.2 % (19.3-51.7); MCH 30.2 PG (25.6-32.2); MCHC 30.9 g/dL (32.2-35.5); MCV 97.9 fL (79.4-94.8); MONOCYTES 15.1 % (4.7-12.5); NEUTROPHILS 71.5 % (34.0-71.1); RBC 3.31 M/uL (3.93-5.22)
[2024-09-22 05:45] LABS: ALT (SGPT) 15.0 U/L (14-59); AST (SGOT) 15.0 U/L (15-37); GLOMERULAR FILTRATION RATE,EST 40.0 mL/min (>60); PROTEIN, TOTAL 7.7 g/dL (6.4-8.2); UREA NITROGEN 14.0 mg/dL (7-18)
[2024-09-22] MEDS ORDERED: FUROSEMIDE 40 MG/4 ML VIAL IV ONE (07:00)
--- NOTE | 2024-09-22 07:37 | NUR ---
RECIEVED SHIFT REPORT. PT IS RESTING IN BED, EYES CLOSED, BREATHING EVEN AND UNLABORED. CPOX IN PLACE. CALL LIGHT IN REACH.
[2024-09-22] MEDS ORDERED: BUDESONIDE 0.5 MG/2 ML VIAL INH SCH (08:00)
--- NOTE | 2024-09-22 08:00 | NUR ---
INTO ROOM FOR MEDICATION ADMINISTRATION. RT AT BEDSIDE FOR NEB TREATMENT. UPDATED PT ON CARE PLAN FOR DAY. ASSISTED PT WITH READJUSTING POSITION IN BED FOR BREAKFAST. TEA PROVIDED PER PT REQUEST. DENIES FURTHER NEEDS, CALL LIGHT IN REACH
--- NOTE | 2024-09-22 08:55 | NUR ---
IMAGINING HERE FOR PT. PT ABLE TO TRANSFER FROM BED TO WITH MINIMIAL ASSIST. PT IS SHAKEY, STATES NORMAL AND TAKES MEDICATIONS FOR IT. REMAINS ON 2L NC.
--- NOTE | 2024-09-22 08:57 | NUR ---
Pt resting in bed with lights off. Education completed on CHF. Pt verblizes understanding. Pt states that she lives by herself, but daughter and son come to see her throughout the week. Daughter helps her with her medication. Educated about low sodium diet. Pt has to eat only premade foods due to not cooking anymore. Pt is aware of lower sodium premade foods and tries to to purchase those, per pt. Pt is aware of CHF symptoms and when to see her PCP or come to the ER. At this point pt has no questions for me. If she or her children have question she is aware I will return to her room to answer any questions needed adressed.
[2024-09-22] MEDS ORDERED: ARFORMOTEROL TARTRATE 15 MCG/2 ML VIAL INH SCH (09:00)
--- NOTE | 2024-09-22 09:10 | NUR ---
PT BACK FROM IMAGING. PT MOVED FROM WHEELCHAIR TO CHAIR VIA 1PA ASSIST. PT WEAK ON FEET. PLACED PT BACK ON CPOX, O2 SATURATION MAINTAINING 95% ON CHONIC 2L VIA NC. BED ALARM PLACED IN CHAIR. ASSISTED PT WITH CALLING DAUGHTER, DENIES FURTHER NEEDS. CALL LIGHT IN REACH
--- NOTE | 2024-09-22 10:00 | NUR ---
TELE SHOWS HEART RATE 204, PT SITTING IN RECLINER, NO DISTRESS NOTED. DR MONTENEGRO NOTIFIED. EKG ORDERED, RT IN ROOM
[2024-09-22] MEDS ORDERED: OXYCODONE HCL5 M1 PO (10:23)
--- NOTE | 2024-09-22 10:34 | NUR ---
PT SLEEPING IN CHAIR, RESPIRATIONS EVEN. NO NEEDS AT THIS TIME. FALL PRECAUTIONS IN PLACE, CALL LIGHT IN REACH
--- NOTE | 2024-09-22 10:57 | NUR ---
INTO SEE PATIENT. PERSONAL HEALTH INFORMATION REVIEWED. PATIENT LIVES ALONE IN [place]. NO STEPS INTO. PATIENT USES A WALKER AND CANE. HER WHOLE FAMILY LIVES IN HER NEIGHBORHOOD. PATIENT USES OXYGEN 24/7. 2 LITERS AT BASELINE. PATIENT DOES NOT DRIVE. SHE HAS A CAREGIVER FOR 6 HOURS A WEEK TO TAKE HER GROCERY SHOPPING AND TO DR. APPOINTMENTS. DAUGHTER DOES MEDICATION MANAGEMENT. DENIES ANY DIFFCULTY PAYING UTILITIES OR OBTAINING FOOD. DAUGHTER TO PICK HER UP WHEN MEDICALLY CLEARED FOR DISCHARGE. NO FUTHER CM NEEDS AT THIS TIME.
--- NOTE | 2024-09-22 11:37 | NUR ---
PT IN ROOM WORKING WITH PT/OT. PT COOPERATIVE WITH CARE. PT NOW BACK IN CHAIR WITH FEET ELEVATED. CPOX ON, TOLERATING HOME 02 WELL. BED ALARM ON. ASSISTED PT WITH CALLING DAUGHTER ON PHONE. CALL LIGHT IN REACH
[2024-09-22] MEDS ORDERED: GABAPENTIN300 MG PO (12:15)
[2024-09-22] MEDS ORDERED: ACETAMINOPHEN 325 MG TAB PO PRN (12:15)
[2024-09-22] MEDS ORDERED: CEPHALEXIN500 MG PO (12:18)
--- NOTE | 2024-09-22 12:19 | NUR ---
medications reconciled using pharmacy records and interview with daughter
[2024-09-22] MEDS ORDERED: AMIODARONE HCL 200 MG TAB PO SCH (12:27)
[2024-09-22] MEDS ORDERED: APIXABAN 5 MG TAB PO SCH (12:27)
[2024-09-22] MEDS ORDERED: ATORVASTATIN 40 MG TAB PO SCH (12:28)
[2024-09-22] MEDS ORDERED: PANTOPRAZOLE SODIUM 40 MG TABEC PO SCH (12:29)
[2024-09-22] MEDS ORDERED: PRIMIDONE 50 MG TAB PO SCH (12:29)
[2024-09-22] MEDS ORDERED: GABAPENTIN 100 MG CAP PO SCH (12:30)
[2024-09-22] MEDS ORDERED: PROPRANOLOL HCL 20 MG TAB PO SCH (12:49)
--- NOTE | 2024-09-22 12:50 | NUR ---
INTO ROOM FOR MEDICATION ADMIN. PT SITTING IN CHAIR, EATING LUNCH. DENIES FURTHER NEEDS, CALL LIGHT IN REACH
[2024-09-22] MEDS ORDERED: FUROSEMIDE 40 MG/4 ML VIAL IV SCH (13:00)
--- NOTE | 2024-09-22 14:05 | NUR ---
PT OVER TO BEDSIDE COMMODE VIA 1PA. PT NOW BACK IN CHAIR, BED ALARM ON FOR PT SAFETY. PT SON AT BEDSIDE. DENIES FURTHER NEEDS, CALL LIGHT IN REACH
--- NOTE | 2024-09-22 15:50 | NUR ---
INTO ROOM TO ANSWER CALL LIGHT. PT REQUESTING TO USE BATHROOM. PT USED FWW VIA SBA TO BATHROOM, 300 CC OUT. PT NOW BACK IN BED. PROVIDED WARM BLANKET PER REQUEST. CPOX ON, MAINTAINING 02 AT 97% ON CHRONIC 2L. FALL PRECAUTIONS IN PLACE, CALL LIGHT IN REACH
--- NOTE | 2024-09-22 16:56 | NUR ---
PT SLEEPING, RESPIRATIONS EVEN. FALL PRECAUTIONS IN PLACE
--- NOTE | 2024-09-22 19:20 | NUR ---
REPORT RECEIVED FROM DAY SHIFT RN. PT LYING IN BED RESTING WITH EYES CLOSED. RESPIRATIONS EVEN. WHITE BOARD UPDATED. CALL LIGHT IN REACH.
[2024-09-22] MEDS ORDERED: GABAPENTIN 300 MG CAP PO SCH (21:00)
--- NOTE | 2024-09-22 21:17 | NUR ---
PT RESTING WITH EYES CLOSED. AWAKENS EASILY. VS AND I&O OBTAINED. PT UP TO BR WITH FWW AND 1PA TO VOID. GAIT STEADY. BACK TO BED, NOLBERTO WELL. DENIES SOB WITH AMBULATION. LUNGS CLEAR THROUGHOUT. 2L/NC IN PLACE. SpO2 98%. TELE #[address] AFIB. HR 60'S. SCHEDULED MEDS ADMIN PER EMAR. PT DENIES PAIN OR NAUSEA. PT DENIES QUESTIONS OR CONCERNS. CALL LIGHT IN REACH. BED ALARM FOR SAFETY.
--- NOTE | 2024-09-22 21:52 | EKG ---
[facility] [address] [facility] [place] [address] Signed Suspect arm lead reversal, interpretation assumes no reversal Atrial fibrillation Lateral infarct (cited on or before 22-MAR-2023) Abnormal ECG When compared with ECG of 27-MAY-2024 01:31, QRS duration has decreased Questionable change in initial forces of Lateral leads QT has shortened Confirmed by Lakisha Montenegro MD () on 09/22/2024 9:52:06 PM Electronically Signed By: LAKISHA MONTENEGRO MD 09/22/[id number] PATIENT NAME: JEANNE WATSON Electrocardiogram DATE OF : 41 PHYSICIAN: LAKISHA MONTENEGRO MD REPORT #: [id number] REPORT IS CONFIDENTIAL AND NOT TO BE RELEASED WITHOUT AUTHORIZATION
--- NOTE | 2024-09-22 21:55 | EKG ---
[facility] [address] [facility] [place] [address] Signed Atrial fibrillation Right axis deviation Incomplete right bundle branch block Right ventricular hypertrophy Septal infarct , age undetermined Abnormal ECG When compared with ECG of 21-SEP-2024 17:27, Incomplete right bundle branch block is now present Septal infarct is now present Confirmed by Lakisha Montenegro MD () on 09/22/2024 9:55:12 PM Electronically Signed By: LAKISHA MONTENEGRO MD 09/22/24 2155 PATIENT NAME: JEANNE WATSON Electrocardiogram DATE OF : 41 PHYSICIAN: LAKISHA MONTENEGRO MD REPORT #: [id number] REPORT IS CONFIDENTIAL AND NOT TO BE RELEASED WITHOUT AUTHORIZATION
--- NOTE | 2024-09-22 22:03 | EKG ---
[facility] [address] [place] [address] Signed Atrial fibrillation Right axis deviation Abnormal ECG When compared with ECG of 21-SEP-2024 20:45, Incomplete right bundle branch block is no longer present Criteria for Septal infarct are no longer present Confirmed by Lakisha Montenegro MD () on 09/22/2024 10:03:26 PM Electronically Signed By: LAKISHA MONTENEGRO MD 09/22/24 2203 PATIENT NAME: JEANNE WATSON Electrocardiogram DATE OF : 41 PHYSICIAN: LAKISHA MONTENEGRO MD REPORT #: [id number] REPORT IS CONFIDENTIAL AND NOT TO BE RELEASED WITHOUT AUTHORIZATION
--- NOTE | 2024-09-22 22:49 | NUR ---
PT RESTING IN BED WITH EYES CLOSED. RESPIRATIONS EVEN. CALL LIGHT IN REACH.
--- NOTE | 2024-09-23 01:29 | NUR ---
PT RESTING IN BED WITH EYES CLOSED. SpO2 98% ON 2L/NC. HR 60'S.
--- NOTE | 2024-09-23 03:36 | NUR ---
PT RESTING IN BED WITH EYES CLOSED. RESPIRATIONS EVEN. CALL LIGHT IN REACH.
[2024-09-23 05:49] LABS: BASOPHILS 0.5 % (0.1-1.2); EOSINOPHILS 3.3 % (0.7-5.8); LYMPHOCYTES 9.6 % (19.3-51.7); MCH 29.7 PG (25.6-32.2); MCHC 30.7 g/dL (32.2-35.5); MCV 96.7 fL (79.4-94.8); MONOCYTES 15.4 % (4.7-12.5); NEUTROPHILS 70.9 % (34.0-71.1); RBC 3.33 M/uL (3.93-5.22)
[2024-09-23 06:06] LABS: ALT (SGPT) 14.0 U/L (14-59); AST (SGOT) 15.0 U/L (15-37); GLOMERULAR FILTRATION RATE,EST 36.0 mL/min (>60); PHOSPHORUS, INORGANIC 4.3 mg/dL (2.5-4.9); PROTEIN, TOTAL 7.6 g/dL (6.4-8.2); UREA NITROGEN 17.0 mg/dL (7-18)
[2024-09-23 06:22] VITALS: BP 112/53
[2024-09-23 06:29] VITALS: BP 112/53
--- NOTE | 2024-09-23 06:46 | NUR ---
PT UP TO BR WITH FWW AND SBA TO VOID. GAIT STEADY. WEIGHT OBTAINED. BACK TO BED, NOLBERTO WELL. DENIES SOB. VS AND I&O OBTAINED. ASSESSMENT UNCHANGED. PT DENIES FURTHER NEEDS. CALL LIGHT IN REACH.
--- NOTE | 2024-09-23 07:25 | NUR ---
REPORT RECEIVED FROM JYOTI MEI. PT RESTING IN BED, RESPIRATIONS EVEN. DENIES NEEDS AT THIS TIME. CALL LIGHT IN REACH, FALL PRECAUTIONS IN PLACE
--- NOTE | 2024-09-23 07:48 | NUR ---
UR CLINICAL REVIEW: 2 MN FOR VERSALUS- PER PAUNCH TRIMMER MEETS INPT FOR ACUTE HYPOXIC RESP FAILURE WITH INCREASED OXYGEN DEMANDS MEDICARE INPT 09/22/24 @ 1216 ORDER MATCHES REG NO AUTH REQUIRED PER MEDICARE GUIDELINES MD ANTICIPATE DC TO HOME WITH HOME HEALTH PT/OT IN 1-2 DAYS
[2024-09-23] MEDS ORDERED: POTASSIUM CHLORIDE 10 MEQ TABCR PO ONE (08:00)
--- NOTE | 2024-09-23 08:30 | NUR ---
INTO ROOM FOR MEDICATION ADMINISTRATION. PT SITTING UP IN BED, WATCHING TV AND EATING BREAKFAST. PT REPORTS HEADACHE 6/10, PRN MEDICATION GIVEN. FRESH ICE WATER PROVIDED, CALL LIGHT IN REACH
[2024-09-23] MEDS ORDERED: TORSEMIDE 5 MG TAB PO SCH (09:00)
[2024-09-23 09:01] VITALS: BP 108/64
--- NOTE | 2024-09-23 09:02 | NUR ---
HOURLY ROUNDING. PATIENT IS IN BED. PATIENT DECLINED SITTING IN RECLINER CHAIR. PAITENT REPORTS SPITTING UP FLEM AND REPORTS BEING TIRED. WATER CUP HAS BEEN FILLED. NO REQUEST FROM PATIENT AT THIS TIME. BOARD HAS BEEN UPDATED AND CALL LIGHT HAS BEEN PLACED WITHIN REACH
[2024-09-23 09:30] VITALS: BP 108/64
--- NOTE | 2024-09-23 10:06 | NUR ---
SPOKE WITH PATIENT. STATES SHE WANTS TO GO HOME. STATES SHE BELIEVES HOME HEALTH WOULD BE A WASTE OF TIME. STATES SHE HAS HER ROUTINES AND HER CAREGIVER AND CHILDREN HELP AROUND THE HOME. STATES SHE ALSO DOES NOT WANT TO HAVE ANY MORE NEB TREATMENTS BECAUSE THEY DRY HER EYES OUT.
--- NOTE | 2024-09-23 10:24 | NUR ---
INTO ROOM FOR PATIENT ASSESSMENT. PT SITTING UP IN BED WITH WASHCLOTH OVER EYES. PT REPORTS SOME "BURNING IN EYES" AND MILD HEADACHE. LIGHTS TURNED DOWN FOR COMFORT. IV FLUSHES WELL, DOES NOT DRAW BACK. BRUISING AROUND INSERTION SITE, NO EDEMA OR SWELLING NOTED. PT DENIES PAIN WITH FLUSH. UPDATED ON PLAN OF CARE, CALL LIGHT IN REACH. FALL PRECAUTIONS IN PLACE
--- NOTE | 2024-09-23 11:30 | NUR ---
PT SLEEPING IN CHAIR, RESPIRATIONS EVEN. NO DISTRESS NOTED. CALL LIGHT IN REACH
[2024-09-23] MEDS ORDERED: PHARMACY RENAL DOSE ADJUSTMENT 1 DOSE MISC PO SCH (12:00)
--- NOTE | 2024-09-23 12:08 | NUR ---
PT RESTING IN CHAIR WITH FEET ELEVATED. RESTING, RESP EVEN. DENIES NEEDS, CALL LIGHT IN REACH
--- NOTE | 2024-09-23 12:33 | NUR ---
PT SITTING UP IN CHAIR, EATING LUNCH. PROVIDED WITH DIET MANI PER REQUEST. DENIES FURTHER NEEDS, CALL LIGHT IN REACH
[2024-09-23 13:23] VITALS: BP 117/62
--- NOTE | 2024-09-23 13:25 | NUR ---
HOURLY ROUNDING. PATIENT IS SITTING IN RECLINER TALKING TO DAUGHTER. NO REQUEST FROM PATIENT AT THIS TIME CALL LIGHT PLACED WITHIN REACH
== END 2024-09-23 14:30 | disposition home or self-care (01) | DRG 291 ==
LOC: ED 17:22 → MS 17:23
PROVIDERS: Emergency Medicine; Internal Medicine; ADMIT Family Medicine; ATTEND Family Medicine
DX: I11.0 Hypertensive heart disease with heart failure (principal); I50.31 Acute diastolic (congestive) heart failure; J96.21 Acute and chronic respiratory failure with hypoxia; I48.20 Chronic atrial fibrillation, unspecified; Z66 Do not resuscitate; R53.1 Weakness; J44.9 Chronic obstructive pulmonary disease, unspecified; R51.9 Headache, unspecified; E78.5 Hyperlipidemia, unspecified; K21.9 Gastro-esophageal reflux disease without esophagitis; M54.50 Low back pain, unspecified; G89.29 Other chronic pain; Z95.2 Presence of prosthetic heart valve; Z90.710 Acquired absence of both cervix and uterus; Z98.890 Other specified postprocedural states; Z79.891 Long term (current) use of opiate analgesic; Z79.899 Other long term (current) drug therapy; Z79.01 Long term (current) use of anticoagulants; Z79.51 Long term (current) use of inhaled steroids; Z99.81 Dependence on supplemental oxygen
CPT/HCPCS: 36415; 51702; 71045; 71046; 80053; 83735; 83880; 84100; 84484; 85025; 85610; 93005; 93010; 94640; 94762; 96376; 97161; 97165; 99285-25; A9270; G0378; J1938; J7605

== ENCOUNTER 2025-01-31 17:24 | Emergency (ER) | payer MEDICARE, OTHER ==
[~2025-01-31] VITALS: Ht 162.6 cm; Wt 108.0 kg
[~2025-01-31 17:24] MED LIST changes: +OXYCODONE HCL5 M1 PO
[2025-01-31 17:38] LABS: BASOPHILS 0.8 % (0.1-1.2); EOSINOPHILS 5.3 % (0.7-5.8); LYMPHOCYTES 22.2 % (19.3-51.7); MCH 29.0 PG (25.6-32.2); MCHC 30.6 g/dL (32.2-35.5); MCV 94.6 fL (79.4-94.8); MONOCYTES 18.3 % (4.7-12.5); NEUTROPHILS 53.4 % (34.0-71.1); RBC 3.73 M/uL (3.93-5.22)
[2025-01-31 17:57] LABS: ALT (SGPT) 10.0 U/L (14-59); AST (SGOT) 18.0 U/L (15-37); GLOMERULAR FILTRATION RATE,EST 35.0 mL/min (>60); PROTEIN, TOTAL 7.5 g/dL (6.4-8.2); UREA NITROGEN 20.0 mg/dL (7-18)
[2025-01-31 20:41] VITALS: BP 125/84
--- NOTE | 2025-02-03 18:06 | EKG ---
[facility] [address] [place] [address] Signed Atrial fibrillation Right axis deviation Incomplete right bundle branch block Possible Right ventricular hypertrophy Abnormal ECG When compared with ECG of 22-SEP-2024 10:03, Incomplete right bundle branch block is now present Confirmed by Lakisha Montenegro MD () on 02/03/2025 6:06:01 PM Electronically Signed By: LAKISHA MONTENEGRO MD 02/03/25 1806 PATIENT NAME: JEANNE WATSON Electrocardiogram DATE OF : 41 PHYSICIAN: LAKISHA MONTENEGRO MD REPORT #: [id number] REPORT IS CONFIDENTIAL AND NOT TO BE RELEASED WITHOUT AUTHORIZATION
== END 2025-01-31 21:00 | disposition home or self-care (01) ==
LOC: ED 17:24
PROVIDERS: Emergency Medicine
DX: S01.01XA Laceration without foreign body of scalp, initial encounter (principal); I48.91 Unspecified atrial fibrillation; I11.0 Hypertensive heart disease with heart failure; K21.9 Gastro-esophageal reflux disease without esophagitis; I50.9 Heart failure, unspecified; Z90.710 Acquired absence of both cervix and uterus; Z79.899 Other long term (current) drug therapy; W18.30XA Fall on same level, unspecified, initial encounter
CPT/HCPCS: 12001; 36415; 70450; 73502; 80053; 85025; 93005; 93010; 99284-25; G0480